=== PATIENT | male | born 1970 | race Caucasian/White ===

== ENCOUNTER 2019-05-15 13:31 | Inpatient (IN) ==
[2019-05-15] MEDS ORDERED: 0.9 % SODIUM CHLORIDE 1,000 ML IV ONE ×2 (13:47→15:51)
[2019-05-15 14:49] LABS: Basophils # (Auto) 0.06 K/mcL (0.00-0.30); Basophils % (Auto) 0.4 % (0.0-2.0); Eosinophils # (Auto) 0.04 K/mcL (0.00-0.70); Eosinophils % (Auto) 0.2 % (0.0-7.0); Granulocytes % (Auto) 90.1 % (38.0-78.0); Hematocrit 37.8 % (40.1-51.0); Hemoglobin 13.2 g/dL (13.7-17.5); Lymphocytes # (Auto) 0.98 K/mcL (1.50-4.80); Lymphocytes % (Auto) 5.7 % (15.5-49.0); Mean Cell Volume 92.4 fL (80.0-100.0); Mean Corpuscular HGB Conc 34.9 g/dL (31.0-36.0); Mean Platelet Volume 9.6 fL (7.4-10.4); Monocytes # (Auto) 0.62 K/mcL (0.10-0.90); Monocytes % (Auto) 3.6 % (1.0-12.0); Platelet Count 229 K/mcL (140-440); RBC 4.09 M/mcL (4.63-6.08); Red Cell Distribution Width 14.6 % (11.5-14.5); WBC 17.1 K/mcL (4.50-11.00)
[2019-05-15 15:06] LABS: Alcohol, Blood < 10.0 mg/dL (<10); Alcohol,Blood < 0.010 gm/dl (<0.010)
[2019-05-15 15:22] LABS: ALT/SGPT 48 U/l (0-40); AST/SGOT 80 U/l (0-37); Albumin 4.8 gm/dL (3.2-5.2); Albumin/Globulin Ratio 1.4 (1.0-2.3); Alkaline Phosphatase 73 U/L (39-117); Bilirubin,Total 0.8 mg/dL (0.0-1.0); Blood Urea Nitrogen 45 mg/dl (6-20); Calcium 10.2 mg/dl (8.6-10.4); Carbon Dioxide 14 mmol/L (22-30); Globulin 3.5 gm/dL (2.2-3.7); Glomerular Filtration Rate 19; Glucose 64 mg/dL (70-105)
[2019-05-15 15:39] LABS: Chloride 90 mmol/L (96-108)
[2019-05-15] MEDS ORDERED: PIPERACILLIN SODIUM/TAZOBACTAM 3.375 GM in DEXTROSE 5% IN WATER 50 ML IV ONE (16:01)
--- NOTE | 2019-05-15 16:08 | Emergency Department Note ---
Psych HPI - General Chief Complaint: Psychiatric Symptoms Stated Complaint: Psych Symptoms Time Seen by Provider: 05/15/19 13:47 Source: patient, EMS Mode of arrival: EMS - History of Present Illness HPI Narrative: 48-year-old male was brought in by police after multiple people were concerned for his wellbeing. He was found out in the yard waving his arms around and not making a lot of sense. Has a history of schizophrenia and has had issues like this in the past. Please brought the patient in and notified [facility] for mental health evaluation. Patient is responsive to me but definitely confused at times. He is holding his arms in the air and he states that is because the police told him to hold his arms in the air so he does not want to put them down. He is able to tell me the date and a little bit about what is going on. He has had a cough for the last few days. Otherwise he feels fine. His clothes are wet and he has a strong odorous urine presents on arrival. He adamantly denies any other recent illness. States he has been taking his medications as directed. He also tells me that he has been eating and drinking fine but his mouth is dry from all his medications which is usual for him. States he did drink some fluid this morning but has not eaten anything. He does state that he did eat last night. No fever or chills. His dad lives next door and helps care for him but tries to let him care for himself. Dad states "I guess I will have to start taking care of him again" QB H is also here and in the room evaluating the patient. Patient denies sore throat, ear pain, or any cold symptoms. No nausea or vomiting or diarrhea. No dysuria or frequency. No abdominal pain or chest pain. Only complaint is a cough the last few days. - Related Data Home Medications Medication Instructions Recorded Confirmed Lisinopril/Hctz 20/12.5MG 1 tablet PO DAILY 12/23/17 12/23/17 [Zestoretic 20/12.5MG] ALPRAZolam [Xanax] 1 mg PO BIDP PRN 05/15/19 05/15/19 Allopurinol [Zylopriim] 300 mg PO DAILY 05/15/19 05/15/19 Cyclobenzaprine [Flexeril] 10 mg PO HSP PRN 05/15/19 05/15/19 Hydrochlorothiazide [Oretic] 25 mg PO DAILY 05/15/19 05/15/19 Losartan Potassium [Cozaar] 100 mg PO DAILY 05/15/19 05/15/19 Metoprolol Tartrate [Lopressor] 25 mg PO BID 05/15/19 05/15/19 OLANZapine [Olanzapine] 2.5 mg PO DAILY 05/15/19 05/15/19 Zolpidem [Ambien] 10 mg PO HSP PRN 05/15/19 05/15/19 amLODIPine [Norvasc] 10 mg PO DAILY 05/15/19 05/15/19 buPROPion [Wellbutrin] 100 mg PO DAILY 05/15/19 05/15/19 clonazePAM [KlonoPIN] 1 mg PO BID 05/15/19 05/15/19 Allergies Allergy/AdvReac Type Severity Reaction Status Date / Time No Known Drug Allergies Allergy Verified 12/23/17 12:04 Review of Systems All systems ED: reviewed and negative except as stated. Past Medical History - Past Medical History Medical history: Reports: hypertension Psychiatric history: Reports: anxiety, schizophrenia (reported by family) - Social History smoking status: Former smoker Alcohol use: Reports: Unknown Drug use: Reports: unknown Physical Exam Limitations: no limitations General appearance: alert (He is alert to person, place, time, and can recall most of the situation and why he was brought in however he does have some strange behavior and does have some confusion at times), other (Smells of urine) Head: atraumatic, normocephalic, normal inspection Eye: Present: normal appearance. Absent: conjunctival injection ENT: Present: mucous membranes moist Chest: Present: symmetric chest wall rise Respiratory: Present: normal lung sounds bilaterally. Absent: respiratory distress, rales/crackles, wheezes, accessory muscle use Cardiovascular: Present: regular rate, normal heart sounds Abdominal: Present: soft, normal bowel sounds. Absent: distention, tenderness, guarding, mass Extremities: Present: normal inspection Neurological: Present: alert, oriented X3 Psychiatric: Present: depressed (denies). Absent: homicidal ideation (denies), suicidal ideation (denies) Skin: Present: warm, dry, intact, normal color Course Course Narrative: For a long time patient refused to give us urine or states he cannot go. Eventually we did have to cath the patient because he was still unable to go and we cannot wait any longer as we needed to proceed with treatment. He has been cooperative. Does have a creatinine of 3.6 and from prior labs that we have this is greatly abnormal for him as his last creatinine was 1.6. He denies any history of kidney problems.Patient again asked about taking his medications and states he has been taking them appropriately. @ [id number] I did speak with Dr. Crabtree, hospitalist who agrees to accept this patient. Vital Signs Temperature 97.2 F 05/15/19 13:33 Pulse Rate 104 H 05/15/19 13:33 Respiratory Rate 26 H 05/15/19 13:33 Blood Pressure 101/74 05/15/19 13:33 Pulse Oximetry (%) 100 05/15/19 13:33 Temperature 97.2 F 05/15/19 13:33 Pulse Rate 91 H 05/15/19 17:01 Respiratory Rate 27 H 05/15/19 17:01 Blood Pressure 118/66 05/15/19 17:01 Pulse Oximetry (%) 100 05/15/19 17:01 Psych - Lab Data Lab results reviewed: Yes I reviewed the patient's lab results. Result diagrams: 05/15/19 14:05 05/15/19 14:05 Lab Results 05/15/19 05/15/19 05/15/19 Range/Units 14:05 14:05 14:05 WBC 17.1 H (4.50-11.00) K/mcL RBC 4.09 L (4.63-6.08) M/mcL Hgb 13.2 L (13.7-17.5) g/dL Hct 37.8 L (40.1-51.0) % MCV 92.4 (80.0-100.0) fL MCH 32.3 (26.0-34.0) pg MCHC 34.9 (31.0-36.0) g/dL RDW 14.6 H (11.5-14.5) % Plt Count 229 (140-440) K/mcL MPV 9.6 (7.4-10.4) fL Gran % 90.1 H (38.0-78.0) % Lymph % (Auto) 5.7 L (15.5-49.0) % [place] % (Auto) 3.6 (1.0-12.0) % Eos % (Auto) 0.2 (0.0-7.0) % Baso % (Auto) 0.4 (0.0-2.0) % Gran # 15.40 H (1.80-8.00) K/mcL Lymph # (Auto) 0.98 L (1.50-4.80) K/mcL [place] # (Auto) 0.62 (0.10-0.90) K/mcL Eos # (Auto) 0.04 (0.00-0.70) K/mcL Baso # (Auto) 0.06 (0.00-0.30) K/mcL VBG Lactic Acid (0.5-2.0) mmol/L Sodium 135 (133-145) mmol/L Potassium 4.3 (3.3-5.1) mmol/L Chloride 90 L (96-108) mmol/L Carbon Dioxide 14 L (22-30) mmol/L Anion Gap 31.0 H (8-16) BUN 45 H (6-20) mg/dl Creatinine 3.6 H (0.7-1.2) mg/dl GFR Calculation 19 Glucose 64 L (70-105) mg/dL Calcium 10.2 (8.6-10.4) mg/dl Total Bilirubin 0.8 (0.0-1.0) mg/dL AST 80 H (0-37) U/l ALT 48 H (0-40) U/l Alkaline Phosphatase 73 (39-117) U/L Total Protein 8.3 (5.9-8.4) gm/dL Albumin 4.8 (3.2-5.2) gm/dL Globulin 3.5 (2.2-3.7) gm/dL Albumin/Globulin Ratio 1.4 (1.0-2.3) Lipase (7-60) U/L TSH 1.30 (0.27-5.01) uIU/ml Urine Color Urine Appearance Urine pH (5.0-9.0) Ur Specific [place] (1.000-1.035) Urine Protein (NEG) mg/dL Urine Glucose (UA) (NEG) mg/dL Urine Ketones (NEG) mg/dL Urine Occult Blood (<0.03) mg/dL Urine Nitrate (NEG) Urine Bilirubin (NEG) mg/dL Urine Urobilinogen (NEG) mg/dL Ur Leukocyte Esterase (NEG) /uL Urine RBC (0-1) /hpf Urine WBC (0-4) /hpf Ur Squamous Epith Cells (0-4) /hpf Urine Bacteria (0) /hpf Hyaline Casts (0-2) /lpf Urine Mucus (0) /hpf Ur Culture Indicated? Salicylates mg/dL Urine Opiates Screen (NONDETECTED) Ur Oxycodone Screen (NONDETECTED) Urine Methadone Screen (NONDETECTED) Acetaminophen < 5.0 ug/mL Ur Barbiturates Screen (NONDETECTED) Ur Phencyclidine Scrn (NONDETECTED) Ur Amphetamines Screen (NONDETECTED) U Benzodiazepines Scrn (NONDETECTED) Urine Cocaine Screen (NONDETECTED) U Marijuana (THC) Screen (NONDETECTED) Ethyl Alcohol Cancelled 05/15/19 05/15/19 05/15/19 Range/Units 14:05 14:06 14:06 WBC (4.50-11.00) K/mcL RBC (4.63-6.08) M/mcL Hgb (13.7-17.5) g/dL Hct (40.1-51.0) % MCV (80.0-100.0) fL MCH (26.0-34.0) pg MCHC (31.0-36.0) g/dL RDW (11.5-14.5) % Plt Count (140-440) K/mcL MPV (7.4-10.4) fL Gran % (38.0-78.0) % Lymph % (Auto) (15.5-49.0) % [place] % (Auto) (1.0-12.0) % Eos % (Auto) (0.0-7.0) % Baso % (Auto) (0.0-2.0) % Gran # (1.80-8.00) K/mcL Lymph # (Auto) (1.50-4.80) K/mcL [place] # (Auto) (0.10-0.90) K/mcL Eos # (Auto) (0.00-0.70) K/mcL Baso # (Auto) (0.00-0.30) K/mcL VBG Lactic Acid (0.5-2.0) mmol/L Sodium (133-145) mmol/L Potassium (3.3-5.1) mmol/L Chloride (96-108) mmol/L Carbon Dioxide (22-30) mmol/L Anion Gap (8-16) BUN (6-20) mg/dl Creatinine (0.7-1.2) mg/dl GFR Calculation Glucose (70-105) mg/dL Calcium (8.6-10.4) mg/dl Total Bilirubin (0.0-1.0) mg/dL AST (0-37) U/l ALT (0-40) U/l Alkaline Phosphatase (39-117) U/L Total Protein (5.9-8.4) gm/dL Albumin (3.2-5.2) gm/dL Globulin (2.2-3.7) gm/dL Albumin/Globulin Ratio (1.0-2.3) Lipase 41 (7-60) U/L TSH (0.27-5.01) uIU/ml Urine Color Urine Appearance Urine pH (5.0-9.0) Ur Specific [place] (1.000-1.035) Urine Protein (NEG) mg/dL Urine Glucose (UA) (NEG) mg/dL Urine Ketones (NEG) mg/dL Urine Occult Blood (<0.03) mg/dL Urine Nitrate (NEG) Urine Bilirubin (NEG) mg/dL Urine Urobilinogen (NEG) mg/dL Ur Leukocyte Esterase (NEG) /uL Urine RBC (0-1) /hpf Urine WBC (0-4) /hpf Ur Squamous Epith Cells (0-4) /hpf Urine Bacteria (0) /hpf Hyaline Casts (0-2) /lpf Urine Mucus (0) /hpf Ur Culture Indicated? Salicylates < 0.3 mg/dL Urine Opiates Screen (NONDETECTED) Ur Oxycodone Screen (NONDETECTED) Urine Methadone Screen (NONDETECTED) Acetaminophen ug/mL Ur Barbiturates Screen (NONDETECTED) Ur Phencyclidine Scrn (NONDETECTED) Ur Amphetamines Screen (NONDETECTED) U Benzodiazepines Scrn (NONDETECTED) Urine Cocaine Screen (NONDETECTED) U Marijuana (THC) Screen (NONDETECTED) Ethyl Alcohol < 0.010 05/15/19 05/15/19 05/15/19 Range/Units 16:13 16:13 16:21 WBC (4.50-11.00) K/mcL RBC (4.63-6.08) M/mcL Hgb (13.7-17.5) g/dL Hct (40.1-51.0) % MCV (80.0-100.0) fL MCH (26.0-34.0) pg MCHC (31.0-36.0) g/dL RDW (11.5-14.5) % Plt Count (140-440) K/mcL MPV (7.4-10.4) fL Gran % (38.0-78.0) % Lymph % (Auto) (15.5-49.0) % [place] % (Auto) (1.0-12.0) % Eos % (Auto) (0.0-7.0) % Baso % (Auto) (0.0-2.0) % Gran # (1.80-8.00) K/mcL Lymph # (Auto) (1.50-4.80) K/mcL [place] # (Auto) (0.10-0.90) K/mcL Eos # (Auto) (0.00-0.70) K/mcL Baso # (Auto) (0.00-0.30) K/mcL VBG Lactic Acid 1.3 (0.5-2.0) mmol/L Sodium (133-145) mmol/L Potassium (3.3-5.1) mmol/L Chloride (96-108) mmol/L Carbon Dioxide (22-30) mmol/L Anion Gap (8-16) BUN (6-20) mg/dl Creatinine (0.7-1.2) mg/dl GFR Calculation Glucose (70-105) mg/dL Calcium (8.6-10.4) mg/dl Total Bilirubin (0.0-1.0) mg/dL AST (0-37) U/l ALT (0-40) U/l Alkaline Phosphatase (39-117) U/L Total Protein (5.9-8.4) gm/dL Albumin (3.2-5.2) gm/dL Globulin (2.2-3.7) gm/dL Albumin/Globulin Ratio (1.0-2.3) Lipase (7-60) U/L TSH (0.27-5.01) uIU/ml Urine Color Yellow Urine Appearance Cloudy Urine pH 5.0 (5.0-9.0) Ur Specific [place] 1.018 (1.000-1.035) Urine Protein 100 A (NEG) mg/dL Urine Glucose (UA) Negative (NEG) mg/dL Urine Ketones 5/tr A (NEG) mg/dL Urine Occult Blood 0.03 A (<0.03) mg/dL Urine Nitrate Neg (NEG) Urine Bilirubin Neg (NEG) mg/dL Urine Urobilinogen Neg (NEG) mg/dL Ur Leukocyte Esterase Neg (NEG) /uL Urine RBC 4 H (0-1) /hpf Urine WBC 6 H (0-4) /hpf Ur Squamous Epith Cells 1 (0-4) /hpf Urine Bacteria 0 (0) /hpf Hyaline Casts 100 H (0-2) /lpf Urine Mucus Mod (0) /hpf Ur Culture Indicated? No Salicylates mg/dL Urine Opiates Screen None detected (NONDETECTED) Ur Oxycodone Screen None detected (NONDETECTED) Urine Methadone Screen None detected (NONDETECTED) Acetaminophen ug/mL Ur Barbiturates Screen None detected (NONDETECTED) Ur Phencyclidine Scrn None detected (NONDETECTED) Ur Amphetamines Screen Suspect positive A (NONDETECTED) U Benzodiazepines Scrn Suspect positive A (NONDETECTED) Urine Cocaine Screen None detected (NONDETECTED) U Marijuana (THC) Screen Suspect positive A (NONDETECTED) Ethyl Alcohol Cancelled - Radiology Data Radiology results reviewed: Yes I reviewed the patient's radiology results. Disposition Pt seen by SEO STRATEGIST/PA only: Yes Clinical Impression: Dehydration, Confusion, Acute renal failure, Polysubstance abuse Disposition: Xfer As Inpt ([facility]) Condition: Fair Referrals: No,PCP [Primary Care Provider] - Time of Disposition: 17:25
[2019-05-15 17:14] LABS: Appearance,Urine CLOUDY; Bacteria,Urine 0 /hpf (0); Bilirubin,Urine NEG (NEG); Color,Urine YELLOW; Culture Indicated,Urine NO; Glucose,Urine (UA) NEGATIVE (NEG); Ketones,Urine 5/TR mg/dL (NEG); Leukocyte Esterase,Urine NEG /uL (NEG); Mucus,Urine MOD /hpf (0); Nitrate,Urine NEG (NEG); Protein,Urine 100 mg/dL (NEG); Specific Gravity,Urine 1.018 (1.000-1.035); Urine Blood 0.03 mg/dL (<0.03); Urine Hyaline Cast 100 /lpf (0-2); Urine RBC 4 /hpf (0-1); Urine Squamous Epithelial Cell 1 /hpf (0-4); Urine WBC 6 /hpf (0-4); Urobilinogen,Urine NEG (NEG)
[2019-05-15 17:18] LABS: Barbiturate Screen,Urine NONE DETECTED (NONDETECTED); Cocaine Screen,Urine NONE DETECTED (NONDETECTED); Opiate Screen,Urine NONE DETECTED (NONDETECTED); Oxycodone, Urine Screen NONE DETECTED (NONDETECTED); Phencyclidine Screen,Urine NONE DETECTED (NONDETECTED)
--- NOTE | 2019-05-15 18:07 | Internal Med History&Physical ---
Medical - H&P: HPI Patient information: Note initiated : 05/15/19 at 6:06 pm Service Date, if different from initiated Date: [] Patient: Zak Aburto a 48 y/o M admitted on for Psych Symptoms. Chief Complaint: found to have ARF History of present illness: Mr. Aburto is a 48 year old M with a history of schizophrenia, hypertension, anxiety, history of alcohol abuse who presents the ED brought in by law enforcem ent after he was found out in his yard. Patient has no recollection of those events. History is obtained speaking with the ED provider as well as the patient. Apparently on the day of admission, the patient was out in the porch and then front yard waving his arms around, yelling and not making sense. Multiple people were concerned and law enforcement was called. He is brought to the ED for evaluation. He smelled of urine and his clothing was wet with urine. He was pleasant, but could not provide history initially. He was evaluated by mental health and felt not to be a threat to himself or others. Further evaluation in the ED showed a creatinine of 3.6, which is apparently new as well as a white count of 17,000. No particular source of infection was found, he is now being admitted for further evaluation of renal failure. Patient history is a bit meandering and occasionally tangential. He tells me he woke up this morning ready to do some work. About lunch she is feeling hungry, did not want fast food and went to the store. He last remembers putting away some items he gotten. Does not remember much after that. Recalls that he is told that he was initially on the porch and then in the front yard. He denies any active hallucinations. He thinks he has had normal urine output, urinating about 3 times a day, though is noted that is become "foamy" over the last 1 to 2 days. He has noted no blood in his urine. No dysuria, no hesitancy. He is taking his current medi cations which include hydrochlorothiazide and losartan. Initially he said he had recently started a supplement, though subsequently states that was Centrum silver vitamins, because he had turned 48. He denies any current fever or feeling feverish. He states he felt he may have had the flu about 2 weeks ago, there other family members were ill. He is complaining of a raspy throat and itchy eyes, perhaps starting today, though he volunteers it could be related to singing karaoke earlier in the week. He has had a dry cough that started yesterday. He denies any sputum production, no dyspnea, though sometimes he cannot take a full breath because tickle in his throat triggers a cough. He has had no abdominal pain, no diarrhea, no nausea or vomiting. He denies any chest pain/tightness/squeezing. All systems: reviewed and no additional remarkable complaints except as stated Medical - H&P: PMH Medical history: Schizophrenia Anxiety Hypertension History of alcohol abuse Gout History of nasal fracture Surgical history: Denies any surgeries Pertinent family history: Mother with depression, has been suicidal in the last year Social history: Lives alone, though his father lives next door and helps keep an eye on him. Manages his own medications. He has drank in the past, states he has "fried my liver" and rarely drinks, last consuming on [email or web address]. He is intermittently stop smoking, most recently about 2 months ago. He does use marijuana. He is used methamphetamine in the past, denies any current methamphetamine use. Medical - H&P: Meds Home Medications Medication Instructions Recorded Confirmed Type ALPRAZolam [Xanax] 1 mg PO BIDP PRN 05/15/19 05/15/19 History Allopurinol [Zylopriim] 300 mg PO DAILY 05/15/19 05/15/19 History Cyclobenzaprine [Flexeril] 10 mg PO HSP PRN 05/15/19 05/15/19 History Hydrochlorothiazide [Oretic] 25 mg PO DAILY 05/15/19 05/15/19 History Losartan Potassium [Cozaar] 100 mg PO DAILY 05/15/19 05/15/19 History Metoprolol Tartrate [Lopressor] 25 mg PO BID 05/15/19 05/15/19 History OLANZapine [Olanzapine] 2.5 mg PO DAILY 05/15/19 05/15/19 History Zolpidem [Ambien] 10 mg PO HSP PRN 05/15/19 05/15/19 History amLODIPine [Norvasc] 10 mg PO DAILY 05/15/19 05/15/19 History clonazePAM [KlonoPIN] 1 mg PO BID 05/15/19 05/15/19 History Allergies Allergy/AdvReac Type Severity Reaction Status Date / Time No Known Drug Allergies Allergy Verified 12/23/17 12:04 Medical - H&P: Exam - Constitutional Vitals: Temp Pulse Resp BP Pulse Ox 97.2 F 91 H 27 H 118/66 100 05/15/19 13:33 05/15/19 17:01 05/15/19 17:01 05/15/19 17:01 05/15/19 17:01 Exam: GENERAL: Alert, in no acute distress. Cooperative, appears stated age. HEENT: Atraumatic. PERRL at 6 mm, conjunctiva clear, no scleral icterus. Hearing grossly intact. Oropharynx with dry mucous membranes, tongue midline, palate rises symmetrically. NECK: Supple without meningismus, no thyromegaly RESPIRATORY: Breath sounds clear bilaterally without wheezes or rhonchi. Respiratory effort is unlabored. CARDIOVASCULAR: Regular rate and rhythm, no murmur gallop or rub. No peripheral edema. Carotid pulses 2+ without bruit. Pedal pulses 2+. GI: Abdomen soft, protuberant nontender, no guarding or rebound. No bulging flanks, no fluid wave appreciated. Bowel sounds are present. No hepatosplenomegaly. : Coello catheter in place MUSCULOSKELETAL: No joint erythema or swelling, normal range of motion in all extremities. Extremities warm and perfused. No CVA tenderness. SKIN: Erythema overlying the knees bilaterally, the patient states that is new. Skin turgor is decreased. NEUROLOGIC: Cranial nerves II through XII grossly intact. Muscle mass normal. Strength 5/5 in the upper and lower extremities. Sensation intact to light touch bilaterally. Deep tendon reflexes 2+ for biceps and patella. Normal muscle tone PSYCHIATRIC: Alert, oriented x3. Thoughts are a bit scattered in stories meanders at times with some tangentiality. Decreased insight into his medical condition. Medical - H&P: Reslt - Labs CBC & Chem 7: 05/15/19 14:05 05/15/19 14:05 Labs: Short CBC 05/15/19 05/15/19 05/15/19 Range/Units 14:05 14:05 14:05 WBC 17.1 H (4.50-11.00) K/mcL RBC 4.09 L (4.63-6.08) M/mcL Hgb 13.2 L (13.7-17.5) g/dL Hct 37.8 L (40.1-51.0) % MCV 92.4 (80.0-100.0) fL MCH 32.3 (26.0-34.0) pg MCHC 34.9 (31.0-36.0) g/dL RDW 14.6 H (11.5-14.5) % Plt Count 229 (140-440) K/mcL MPV 9.6 (7.4-10.4) fL Gran % 90.1 H (38.0-78.0) % Lymph % (Auto) 5.7 L (15.5-49.0) % [place] % (Auto) 3.6 (1.0-12.0) % Eos % (Auto) 0.2 (0.0-7.0) % Baso % (Auto) 0.4 (0.0-2.0) % Gran # 15.40 H (1.80-8.00) K/mcL Lymph # (Auto) 0.98 L (1.50-4.80) K/mcL [place] # (Auto) 0.62 (0.10-0.90) K/mcL Eos # (Auto) 0.04 (0.00-0.70) K/mcL Baso # (Auto) 0.06 (0.00-0.30) K/mcL VBG Lactic Acid (0.5-2.0) mmol/L Sodium 135 (133-145) mmol/L Potassium 4.3 (3.3-5.1) mmol/L Chloride 90 L (96-108) mmol/L Carbon Dioxide 14 L (22-30) mmol/L Anion Gap 31.0 H (8-16) BUN 45 H (6-20) mg/dl Creatinine 3.6 H (0.7-1.2) mg/dl GFR Calculation 19 Glucose 64 L (70-105) mg/dL Calcium 10.2 (8.6-10.4) mg/dl Total Bilirubin 0.8 (0.0-1.0) mg/dL AST 80 H (0-37) U/l ALT 48 H (0-40) U/l Alkaline Phosphatase 73 (39-117) U/L Total Protein 8.3 (5.9-8.4) gm/dL Albumin 4.8 (3.2-5.2) gm/dL Globulin 3.5 (2.2-3.7) gm/dL Albumin/Globulin Ratio 1.4 (1.0-2.3) Lipase (7-60) U/L TSH 1.30 (0.27-5.01) uIU/ml Urine Color Urine Appearance Urine pH (5.0-9.0) Ur Specific [place] (1.000-1.035) Urine Protein (NEG) mg/dL Urine Glucose (UA) (NEG) mg/dL Urine Ketones (NEG) mg/dL Urine Occult Blood (<0.03) mg/dL Urine Nitrate (NEG) Urine Bilirubin (NEG) mg/dL Urine Urobilinogen (NEG) mg/dL Ur Leukocyte Esterase (NEG) /uL Urine RBC (0-1) /hpf Urine WBC (0-4) /hpf Ur Squamous Epith Cells (0-4) /hpf Urine Bacteria (0) /hpf Hyaline Casts (0-2) /lpf Urine Mucus (0) /hpf Ur Culture Indicated? Salicylates mg/dL Urine Opiates Screen (NONDETECTED) Ur Oxycodone Screen (NONDETECTED) Urine Methadone Screen (NONDETECTED) Acetaminophen < 5.0 ug/mL Ur Barbiturates Screen (NONDETECTED) Ur Phencyclidine Scrn (NONDETECTED) Ur Amphetamines Screen (NONDETECTED) U Benzodiazepines Scrn (NONDETECTED) Urine Cocaine Screen (NONDETECTED) U Marijuana (THC) Screen (NONDETECTED) Ethyl Alcohol Cancelled 05/15/19 05/15/19 05/15/19 Range/Units 14:05 14:06 14:06 WBC (4.50-11.00) K/mcL RBC (4.63-6.08) M/mcL Hgb (13.7-17.5) g/dL Hct (40.1-51.0) % MCV (80.0-100.0) fL MCH (26.0-34.0) pg MCHC (31.0-36.0) g/dL RDW (11.5-14.5) % Plt Count (140-440) K/mcL MPV (7.4-10.4) fL Gran % (38.0-78.0) % Lymph % (Auto) (15.5-49.0) % [place] % (Auto) (1.0-12.0) % Eos % (Auto) (0.0-7.0) % Baso % (Auto) (0.0-2.0) % Gran # (1.80-8.00) K/mcL Lymph # (Auto) (1.50-4.80) K/mcL [place] # (Auto) (0.10-0.90) K/mcL Eos # (Auto) (0.00-0.70) K/mcL Baso # (Auto) (0.00-0.30) K/mcL VBG Lactic Acid (0.5-2.0) mmol/L Sodium (133-145) mmol/L Potassium (3.3-5.1) mmol/L Chloride (96-108) mmol/L Carbon Dioxide (22-30) mmol/L Anion Gap (8-16) BUN (6-20) mg/dl Creatinine (0.7-1.2) mg/dl GFR Calculation Glucose (70-105) mg/dL Calcium (8.6-10.4) mg/dl Total Bilirubin (0.0-1.0) mg/dL AST (0-37) U/l ALT (0-40) U/l Alkaline Phosphatase (39-117) U/L Total Protein (5.9-8.4) gm/dL Albumin (3.2-5.2) gm/dL Globulin (2.2-3.7) gm/dL Albumin/Globulin Ratio (1.0-2.3) Lipase 41 (7-60) U/L TSH (0.27-5.01) uIU/ml Urine Color Urine Appearance Urine pH (5.0-9.0) Ur Specific [place] (1.000-1.035) Urine Protein (NEG) mg/dL Urine Glucose (UA) (NEG) mg/dL Urine Ketones (NEG) mg/dL Urine Occult Blood (<0.03) mg/dL Urine Nitrate (NEG) Urine Bilirubin (NEG) mg/dL Urine Urobilinogen (NEG) mg/dL Ur Leukocyte Esterase (NEG) /uL Urine RBC (0-1) /hpf Urine WBC (0-4) /hpf Ur Squamous Epith Cells (0-4) /hpf Urine Bacteria (0) /hpf Hyaline Casts (0-2) /lpf Urine Mucus (0) /hpf Ur Culture Indicated? Salicylates < 0.3 mg/dL Urine Opiates Screen (NONDETECTED) Ur Oxycodone Screen (NONDETECTED) Urine Methadone Screen (NONDETECTED) Acetaminophen ug/mL Ur Barbiturates Screen (NONDETECTED) Ur Phencyclidine Scrn (NONDETECTED) Ur Amphetamines Screen (NONDETECTED) U Benzodiazepines Scrn (NONDETECTED) Urine Cocaine Screen (NONDETECTED) U Marijuana (THC) Screen (NONDETECTED) Ethyl Alcohol < 0.010 05/15/19 05/15/19 05/15/19 Range/Units 16:13 16:13 16:21 WBC (4.50-11.00) K/mcL RBC (4.63-6.08) M/mcL Hgb (13.7-17.5) g/dL Hct (40.1-51.0) % MCV (80.0-100.0) fL MCH (26.0-34.0) pg MCHC (31.0-36.0) g/dL RDW (11.5-14.5) % Plt Count (140-440) K/mcL MPV (7.4-10.4) fL Gran % (38.0-78.0) % Lymph % (Auto) (15.5-49.0) % [place] % (Auto) (1.0-12.0) % Eos % (Auto) (0.0-7.0) % Baso % (Auto) (0.0-2.0) % Gran # (1.80-8.00) K/mcL Lymph # (Auto) (1.50-4.80) K/mcL [place] # (Auto) (0.10-0.90) K/mcL Eos # (Auto) (0.00-0.70) K/mcL Baso # (Auto) (0.00-0.30) K/mcL VBG Lactic Acid 1.3 (0.5-2.0) mmol/L Sodium (133-145) mmol/L Potassium (3.3-5.1) mmol/L Chloride (96-108) mmol/L Carbon Dioxide (22-30) mmol/L Anion Gap (8-16) BUN (6-20) mg/dl Creatinine (0.7-1.2) mg/dl GFR Calculation Glucose (70-105) mg/dL Calcium (8.6-10.4) mg/dl Total Bilirubin (0.0-1.0) mg/dL AST (0-37) U/l ALT (0-40) U/l Alkaline Phosphatase (39-117) U/L Total Protein (5.9-8.4) gm/dL Albumin (3.2-5.2) gm/dL Globulin (2.2-3.7) gm/dL Albumin/Globulin Ratio (1.0-2.3) Lipase (7-60) U/L TSH (0.27-5.01) uIU/ml Urine Color Yellow Urine Appearance Cloudy Urine pH 5.0 (5.0-9.0) Ur Specific [place] 1.018 (1.000-1.035) Urine Protein 100 A (NEG) mg/dL Urine Glucose (UA) Negative (NEG) mg/dL Urine Ketones 5/tr A (NEG) mg/dL Urine Occult Blood 0.03 A (<0.03) mg/dL Urine Nitrate Neg (NEG) Urine Bilirubin Neg (NEG) mg/dL Urine Urobilinogen Neg (NEG) mg/dL Ur Leukocyte Esterase Neg (NEG) /uL Urine RBC 4 H (0-1) /hpf Urine WBC 6 H (0-4) /hpf Ur Squamous Epith Cells 1 (0-4) /hpf Urine Bacteria 0 (0) /hpf Hyaline Casts 100 H (0-2) /lpf Urine Mucus Mod (0) /hpf Ur Culture Indicated? No Salicylates mg/dL Urine Opiates Screen None detected (NONDETECTED) Ur Oxycodone Screen None detected (NONDETECTED) Urine Methadone Screen None detected (NONDETECTED) Acetaminophen ug/mL Ur Barbiturates Screen None detected (NONDETECTED) Ur Phencyclidine Scrn None detected (NONDETECTED) Ur Amphetamines Screen Suspect positive A (NONDETECTED) U Benzodiazepines Scrn Suspect positive A (NONDETECTED) Urine Cocaine Screen None detected (NONDETECTED) U Marijuana (THC) Screen Suspect positive A (NONDETECTED) Ethyl Alcohol Cancelled BMP 05/15/19 14:05 Sodium 135 Potassium 4.3 Chloride 90 L Carbon Dioxide 14 L BUN 45 H Creatinine 3.6 H Glucose 64 L Calcium 10.2 Liver Function 05/15/19 Range/Units 14:05 Total Bilirubin 0.8 (0.0-1.0) mg/dL AST 80 H (0-37) U/l ALT 48 H (0-40) U/l Alkaline Phosphatase 73 (39-117) U/L Albumin 4.8 (3.2-5.2) gm/dL Urine 05/15/19 Range/Units 16:13 Urine Color Yellow Urine Appearance Cloudy Urine pH 5.0 (5.0-9.0) Ur Specific [place] 1.018 (1.000-1.035) Urine Protein 100 A (NEG) mg/dL Urine Glucose (UA) Negative (NEG) mg/dL - Imaging and Cardiology Chest x-ray Status: image reviewed by me Additional comments: Clear, no infiltrate. Medical - H&P: A/P - Narrative A/P Narrative: 48-year-old male with schizophrenia, found in his own yard with abnormal behaviors, found to have acute renal failure and leukocytosis in the ED. Acute renal failure. Patient's creatinine is 3.6. Minimal prior data here, but was 1.2 in 12/2017. Patient states he does have labs drawn by primary care, recently had blood work done and there is no discussion of renal insufficiency. Etiology is possible prerenal, the patient appears quite volume depleted. Urine has significant amounts of hyaline casts present suggesting volume depletion. He was mildly hypotensive and tachycardic at presentation, again consistent with volume issues. Etiology of volume depletion could be related to psychosis, possible methamphetamine use (denies but drug screen is positive) with contribution by diuretic for hypertension. ATN is also a possibility secondary to dehydration low blood pressure. No recent contrast exposures. Inpatient admission Send urine to calculate FeNa Check renal ultrasound Volume resuscitation Check urine eosinophils Check CPK to rule out rhabdomyolysis Coello catheter for close intake and output monitoring (placed in the ED) Leukocytosis. Unclear etiology. May be related to stress. No evidence of infection on physical exam, radiograph or urine analysis. He did receive anti biotics in the ED and has been cultured. Monitor expectantly Follow-up cultures Begin antibiotics if evidence of infection Metabolic acidosis with increased anion gap. Lactate is normal 1.3. Suspect this may be acidosis related to renal failure. Monitor with hydration and correction of renal failure Schizophrenia. Appears with some disordered thoughts, but no active hallucinations, has been evaluated by Q and is not felt to be of danger. Continue olanzapine. Anxiety. The patient is on clonazepam at baseline Continue CODE STATUS: Full code
[2019-05-15 18:09] LABS: Amphetamine Screen,Urine SUSPECT POSITIVE (NONDETECTED); Benzodiazepines Screen,Urine SUSPECT POSITIVE (NONDETECTED); Cannabinoid Screen,Urine SUSPECT POSITIVE (NONDETECTED)
--- NOTE | 2019-05-15 18:21 | XRay Report ---
CLINICAL INFORMATION: Cough and elevated white blood cell count COMPARISON: None. TECHNIQUE: PA and Lateral views FINDINGS: The heart size, mediastinum and pulmonary vessels are unremarkable. A few small calcified granulomas in the perihilar regions appreciated. No infiltrates. There are no effusions. The bones and soft tissues are within normal limits. IMPRESSION: No acute disease. Interpreted and Authenticated by: Amanuel Mcconnell 05/15/19
[2019-05-15] MEDS ORDERED: ONDANSETRON 4 MG/2 ML VIAL IV PRN (19:05)
[2019-05-15] MEDS ORDERED: LACTULOSE 20 GM/30 ML ORAL.SOL PO PRN (19:05)
[2019-05-15] MEDS ORDERED: SENNOSIDES 1 TABLET PO PRN (19:05)
[2019-05-15] MEDS ORDERED: ACETAMINOPHEN 325 MG TABLET PO PRN (19:05)
[2019-05-15] MEDS ORDERED: POLYVINYL ALCOHOL OPHTH DROPS 15ML BOTTLE OU PRN (19:05)
[2019-05-15] MEDS: 0.9 % SODIUM CHLORIDE 1,000 ML IV SCH (19:41)
[2019-05-15] MEDS ORDERED: ZOLPIDEM 5 MG TABLET PO PRN (20:13)
[2019-05-15] MEDS ORDERED: ALPRAZolam 0.5 MG TABLET PO PRN (20:13)
[2019-05-15 20:30] LABS: Sodium, Urine Random 46 mmol/L
[2019-05-15] MEDS: METOPROLOL TARTRATE 25 MG TABLET PO SCH (21:50)
[2019-05-15] MEDS: OXYBUTYNIN CHLORIDE 5 MG TABLET PO SCH (21:50)
[2019-05-15] MEDS: clonazePAM 1 MG TABLET PO SCH (21:50)
[2019-05-15] MEDS: HEPARIN 5,000 UNIT/ML VIAL SQ SCH (21:50)
[2019-05-15] MEDS: TAMSULOSIN 0.4 MG CAPSULE PO SCH (21:50)
[2019-05-15] MEDS: DOCUSATE SODIUM 100 MG CAPSULE PO SCH (21:51)
[2019-05-15] MEDS: 0.9 % SODIUM CHLORIDE 10 ML SYRINGE IV SCH (21:51)
[2019-05-16] MEDS: 0.9 % SODIUM CHLORIDE 1,000 ML IV SCH ×3 (01:45→17:13)
[2019-05-16] MEDS ORDERED: LORazepam 2 MG/ML VIAL IV PRN (01:58)
[2019-05-16] MEDS ORDERED: QUEtiapine 100 MG TABLET PO ONE (01:58)
[2019-05-16] MEDS ORDERED: LORazepam 2 MG/ML VIAL ONE (02:01)
[2019-05-16] MEDS: 0.9 % SODIUM CHLORIDE 10 ML SYRINGE IV SCH ×3 (05:33→23:28)
[2019-05-16 06:46] LABS: Basophils # (Auto) 0.03 K/mcL (0.00-0.30); Basophils % (Auto) 0.4 % (0.0-2.0); Eosinophils # (Auto) 0.05 K/mcL (0.00-0.70); Eosinophils % (Auto) 0.6 % (0.0-7.0); Granulocytes % (Auto) 68.9 % (38.0-78.0); Hematocrit 31.2 % (40.1-51.0); Hemoglobin 10.3 g/dL (13.7-17.5); Lymphocytes # (Auto) 1.75 K/mcL (1.50-4.80); Lymphocytes % (Auto) 21.3 % (15.5-49.0); Mean Cell Volume 96.9 fL (80.0-100.0); Mean Platelet Volume 9.9 fL (7.4-10.4); Monocytes # (Auto) 0.72 K/mcL (0.10-0.90); Monocytes % (Auto) 8.8 % (1.0-12.0); Platelet Count 164 K/mcL (140-440); RBC 3.22 M/mcL (4.63-6.08); Red Cell Distribution Width 15.5 % (11.5-14.5); WBC 8.2 K/mcL (4.50-11.00)
[2019-05-16 07:01] LABS: ALT/SGPT 44 U/l (0-40); AST/SGOT 104 U/l (0-37); Albumin 3.9 gm/dL (3.2-5.2); Albumin/Globulin Ratio 1.4 (1.0-2.3); Alkaline Phosphatase 58 U/L (39-117); Bilirubin,Direct 0.3 mg/dL (0.0-0.3); Bilirubin,Total 0.7 mg/dL (0.0-1.0); Blood Urea Nitrogen 43 mg/dl (6-20); Calcium 8.6 mg/dl (8.6-10.4); Carbon Dioxide 15 mmol/L (22-30); Chloride 97 mmol/L (96-108); Globulin 2.7 gm/dL (2.2-3.7); Glomerular Filtration Rate 22; Glucose 59 mg/dL (70-105); Lactate Dehydrogenase 289 U/L (94-250); Phosphorous 4.8 mg/dL (2.7-4.5); Triglycerides 165 mg/dl (<150); Uric Acid 14.6 mg/dL (2.5-8.0)
[2019-05-16] MEDS: DOCUSATE SODIUM 100 MG CAPSULE PO SCH ×2 (10:37→21:08)
[2019-05-16] MEDS: ALLOPURINOL 300 MG TABLET PO SCH (10:42)
[2019-05-16] MEDS: METOPROLOL TARTRATE 25 MG TABLET PO SCH ×2 (10:42→21:08)
[2019-05-16] MEDS: OLANZapine 2.5 MG TABLET PO SCH (10:42)
[2019-05-16] MEDS: amLODIPine 10 MG TABLET PO SCH (10:42)
[2019-05-16] MEDS: HEPARIN 5,000 UNIT/ML VIAL SQ SCH ×2 (10:42→21:07)
[2019-05-16] MEDS: clonazePAM 1 MG TABLET PO SCH ×2 (10:42→21:08)
[2019-05-16] MEDS: OXYBUTYNIN CHLORIDE 5 MG TABLET PO SCH ×3 (10:42→21:07)
--- NOTE | 2019-05-16 12:32 | Ultrasound Report ---
CLINICAL INFORMATION: Acute renal failure COMPARISON: None. FINDINGS: Both kidneys are normal and symmetric in size, position, configuration and echotexture: The right is 13 x 6 cm and the left is 12.5 x 6 cm. A 3 cm hypoechoic vascular lesion projects exophytically from the inferior pole of the right kidney. No hydronephrosis or stones. Arterial blood flow is grossly normal to both kidneys on color Doppler. Urinary bladder volume is 82 cc with no post void residual. There are no focal bladder lesions. IMPRESSION: No cause identified for renal failure. 3 cm hypoechoic solid lesion - inferior pole of the right kidney. Suggest: Noncontrast abdominal MRI to evaluate for renal cell carcinoma Interpreted and Authenticated by: Amanuel Mcconnell 05/16/19
--- NOTE | 2019-05-16 13:37 | Internal Med Progress Note ---
Medical - PN: Subj Patient information: Note initiated : 05/16/19 at 1:34 pm Service Date, if different from initiated Date: [] Patient: Zak Aburto a 48 y/o M admitted on 05/15/19 for Psych Symptoms. Chief Complaint: [] Interval history: 05/15 Mr. Aburto is a 48 year old M with a history of schizophrenia, hypertension, anxiety, history of alcohol abuse who presents the ED brought in by law enforcement after he was found out in his yard. Patient has no recollection of those events. History is obtained speaking with the ED provider as well as the patient. Apparently on the day of admission, the patient was out in the porch and then front yard waving his arms around, yelling and not making sense. Multiple people were concerned and law enforcement was called. He is brought to the ED for evaluation. He smelled of urine and his clothing was wet with urine. He was pleasant, but could not provide history initially. He was evaluated by mental health and felt not to be a threat to himself or others. Further evaluation in the ED showed a creatinine of 3.6, which is apparently new as well as a white count of 17,000. No particular source of infection was found, he is now being admitted for further evaluation of renal failure. Patient history is a bit meandering and occasionally tangential. He tells me he woke up this morning ready to do some work. About lunch she is feeling hungry, did not want fast food and went to the store. He last remembers putting away some items he gotten. Does not remember much after that. Recalls that he is told that he was initially on the porch and then in the front yard. He denies any active hallucinations. He thinks he has had normal urine output, urinating about 3 times a day, though is noted that is become "foamy" over the last 1 to 2 days. He has noted no blood in his urine. No dysuria, no hesitancy. He is taking his current medications which include hydrochlorothiazide and losartan. Initially he said he had recently started a supplement, though subsequently states that was Centrum silver vitamins, because he had turned 48. 05/16 Patient was very active. Overnight, moving around with psychomotor agitation. He is not combative. Reports my these. Received dose Seroquel without much effect, also received lorazepam. This morning he is more lucid, he did note that he and some friends ingested a unknown white powder at a [employer] a few days ago. Creatinine is improved to 3.1 this morning. Continues with good urine output. Fractional excretion of sodium 0.37% - Constitutional Vitals: Vital Signs Temp Pulse Resp BP Pulse Ox 98.1 F 95 H 22 94/59 100 05/16/19 04:02 05/16/19 01:03 05/16/19 12:11 05/16/19 11:21 05/16/19 11:21 Period Temp Pulse Resp BP Sys/Tarango Pulse Ox Last 24 Hr 97.2 F-98.2 F 79-102 14-35 48-141/33-123 91-100 Intake and Output 05/15/19 05/16/19 05/16/19 21:59 05:59 13:59 Intake Total 2049 187 1120 Output Total 500 300 104 Balance 1550 1570 1016 Weight 199 lb 4.8 oz Intake & Output: Intake & Output 05/15/19 05/16/19 05/16/19 21:59 05:59 13:59 Intake Total 2049 1869 1120 Output Total 500 300 104 Balance 1550 1570 1016 Weight 199 lb 4.8 oz Intake: IV 2049 910 1000 Sodium Chloride 0.9% 1,000 ml @ 2000 910 1000 150 mls/hr IV .Q6H40M [facility] Rx#: [id number] Zosyn 3.375 gm In Dextrose 5% 50 in Water 50 ml @ 100 mls/hr IV ONCE ONE Rx#:[id number] Oral 960 120 Output: Urine Catheter Amount 500 300 Void Amount 100 # of times incontinent of urine 4 Other: Meal Breakfast Percent of Meal Consumed 100% Feeding Ability Independent Urine Appearance Clear Clear Sediment Uretheral (Coello) Cloudy Urine Color Dark Yellow Bright Yellow Uretheral (Coello) Straw Stool Size Smear Stool Color Brown Yellow Stool Consistency Liquid # of times incontinent of 1 Bowels Exam: General: In bed, moving frequently, no complaints of pain. Chest: Clear. Cardiac vascular: Regular Abdomen: Soft, nontender. Neuro: Alert, initially disoriented, then realizes he's [place], is able to confirm his history of ingesting a substance at a [employer]. Moves all extremities equally. No hallucinations. Medical - PN: Obj Da - Labs CBC & Chem 7: 05/16/19 04:11 05/16/19 04:11 Labs: Abnormal Lab Results Fractional excretion of sodium equals 0.37% 05/16/19 05/16/19 05/15/19 04:11 04:11 16:13 WBC RBC 3.22 L Hgb 10.3 L Hct 31.2 L RDW 15.5 H Gran % Lymph % (Auto) Gran # Lymph # (Auto) Chloride Carbon Dioxide 15 L Anion Gap 24.0 H BUN 43 H Creatinine 3.1 H Glucose 59 L Uric Acid 14.6 H Phosphorus 4.8 H GGT 108 H AST 104 H ALT 44 H Lactate Dehydrogenase 289 H Total Creatine Kinase Triglycerides 165 H Urine Protein Urine Ketones Urine Occult Blood Urine RBC Urine WBC Hyaline Casts Ur Amphetamines Screen Suspect positive A U Benzodiazepines Scrn Suspect positive A U Marijuana (THC) Screen Suspect positive A 05/15/19 05/15/19 05/15/19 16:13 14:05 14:05 WBC RBC Hgb Hct RDW Gran % Lymph % (Auto) Gran # Lymph # (Auto) Chloride 90 L Carbon Dioxide 14 L Anion Gap 31.0 H BUN 45 H Creatinine 3.6 H Glucose 64 L Uric Acid Phosphorus GGT AST 80 H ALT 48 H Lactate Dehydrogenase Total Creatine Kinase 909 H Triglycerides Urine Protein 100 A Urine Ketones 5/tr A Urine Occult Blood 0.03 A Urine RBC 4 H Urine WBC 6 H Hyaline Casts 100 H Ur Amphetamines Screen U Benzodiazepines Scrn U Marijuana (THC) Screen 05/15/19 14:05 WBC 17.1 H RBC 4.09 L Hgb 13.2 L Hct 37.8 L RDW 14.6 H Gran % 90.1 H Lymph % (Auto) 5.7 L Gran # 15.40 H Lymph # (Auto) 0.98 L Chloride Carbon Dioxide Anion Gap BUN Creatinine Glucose Uric Acid Phosphorus GGT AST ALT Lactate Dehydrogenase Total Creatine Kinase Triglycerides Urine Protein Urine Ketones Urine Occult Blood Urine RBC Urine WBC Hyaline Casts Ur Amphetamines Screen U Benzodiazepines Scrn U Marijuana (THC) Screen Meds: Medications Acetaminophen (Tylenol) 650 mg PO Q6HP PRN; Protocol PRN Reason: Per Pain Protocol/Fever > 101 Allopurinol (Zylopriim) 300 mg PO DAILY [facility] Last Admin: 05/16/19 10:42 Dose: 300 mg Documented by: Alprazolam (Xanax) 1 mg PO BIDP PRN PRN Reason: Anxiety Last Admin: 05/15/19 21:50 Dose: 1 mg Documented by: Amlodipine Besylate (Norvasc) 10 mg PO DAILY [facility] Last Admin: 05/16/19 10:42 Dose: 10 mg Documented by: Artificial Tears (Artificial Tears Ophth Drops) 1 gtt OU Q1HP PRN PRN Reason: Dry Eye(s) Clonazepam (Klonopin) 1 mg PO BID [facility] Last Admin: 05/16/19 10:42 Dose: 1 mg Documented by: Docusate Sodium (Colace) 100 mg PO BID [facility] Last Admin: 05/16/19 10:37 Dose: Not Given Documented by: Heparin Sodium (Porcine) (Heparin) 5,000 unit SQ Q12 [facility] Last Admin: 05/16/19 10:42 Dose: 5,000 unit Documented by: Sodium Chloride (Sodium Chloride 0.9%) 1,000 mls @ 150 mls/hr IV .Q6H40M [facility] Last Admin: 05/16/19 09:17 Dose: 150 mls/hr Documented by: Lactulose (Cephulac) 10 gm PO DAILYP PRN PRN Reason: Constipation Lorazepam (Ativan) 1 mg IV Q4HP PRN PRN Reason: ANXIETY/SEDATION Last Admin: 05/16/19 02:04 Dose: 1 mg Documented by: Metoprolol Tartrate (Lopressor) 25 mg PO BID [facility] Last Admin: 05/16/19 10:42 Dose: 25 mg Documented by: Olanzapine (Zyprexa) 2.5 mg PO DAILY [facility] Last Admin: 05/16/19 10:42 Dose: 2.5 mg Documented by: Ondansetron HCl (Zofran) 4 mg IV Q4HP PRN; Protocol PRN Reason: Nausea And Vomiting Oxybutynin Chloride (Ditropan) 5 mg PO TID [facility] Last Admin: 05/16/19 10:42 Dose: 5 mg Documented by: Senna (Senokot) 2 tab PO HSP PRN PRN Reason: Constipation Sodium Chloride (Saline Flush) 10 ml IV Q8 [facility] Last Admin: 05/16/19 05:33 Dose: 10 ml Documented by: Tamsulosin HCl (Flomax) 0.4 mg PO HS [facility] Last Admin: 05/15/19 21:50 Dose: 0.4 mg Documented by: Zolpidem Tartrate (Ambien) 10 mg PO HSP PRN PRN Reason: Insomnia Last Admin: 05/15/19 21:50 Dose: 10 mg Documented by: - Impressions Renal U/S IMPRESSION: No cause identified for renal failure. 3 cm hypoechoic solid lesion - inferior pole of the right kidney. Suggest: Noncontrast abdominal MRI to evaluate for renal cell carcinoma Medical - PN: A/P - Time Spent With Patient Total time spent is greater than 50% in coordination of care (as documented) at patient's floor/unit and/or counseling patient: Greater than 35 minutes - Narrative A/P Narrative: 48-year-old male with schizophrenia, found in his own yard with abnormal behaviors, found to have acute renal failure and leukocytosis in the ED. Acute renal failure. Improving. At presentation, patient's creatinine was 3.6, was 1.2 in 12/2017. Patient states he does have labs drawn by primary care, recently had blood work done and there is no discussion of renal insufficiency. Etiology is suspected prerenal, fractional excretion of sodium 0.37% and the patient clinically appears quite volume depleted. Urine has significant amounts of hyaline casts present suggesting volume depletion. He was mildly hypotensive and tachycardic at presentation, again consistent with volume issues. Etiology of volume depletion could be related to psychosis, possible methamphetamine use with contribution by diuretic for hypertension. ATN is also a possibility secondary to dehydration low blood pressure. No recent contrast exposures. Urine Eos negative. Continue volume resuscitation Coello catheter for close intake and output monitoring (placed in the ED) No further improvement, will likely need to get renal involved Leukocytosis. Resolved. May have been related to stress. No evidence of infection on physical exam, radiograph or urine analysis. He did receive antibiotics in the ED and has been cultured. Monitor expectantly Follow-up cultures Begin antibiotics if evidence of infection Metabolic acidosis with increased anion gap. Lactate is normal 1.3. Suspect this may be acidosis related to renal failure. Monitor with hydration and correction of renal failure Schizophrenia. Appears with some disordered thoughts, but no active hallucinations, has been evaluated by [facility] and is not felt to be of danger. Continues to have psychomotor agitation, this baby withdrawal symptoms from an ingestion a few days prior to admission with his history of having ingested an u nknown substance at a house [place]. Continue olanzapine; consider adding bedtime dose; supportive care. Anxiety. The patient is on clonazepam at baseline Continue CODE STATUS: Full code
--- NOTE | 2019-05-16 14:09 | Internal Med Progress Note ---
Medical - PN: Subj Patient information: Note initiated : 05/16/19 at 2:04 pm Service Date, if different from initiated Date: [] Patient: Zak Aburto a 48 y/o M admitted on 05/15/19 for Psych Symptoms. Chief Complaint: [] Interval history: 05/15 Mr. Aburto is a 48 year old M with a history of schizophrenia, hypertension, anxiety, history of alcohol abuse who presents the ED brought in by law enforcement after he was found out in his yard. Patient has no recollection of those events. History is obtained speaking with the ED provider as well as the patient. Apparently on the day of admission, the patient was out in the porch and then front yard waving his arms around, yelling and not making sense. Multiple people were concerned and law enforcement was called. He is brought to the ED for evaluation. He smelled of urine and his clothing was wet with urine. He was pleasant, but could not provide history initially. He was evaluated by mental health and felt not to be a threat to himself or others. Further evaluation in the ED showed a creatinine of 3.6, which is apparently new as well as a white count of 17,000. No particular source of infection was found, he is now being admitted for further evaluation of renal failure. Patient history is a bit meandering and occasionally tangential. He tells me he woke up this morning ready to do some work. About lunch she is feeling hungry, did not want fast food and went to the store. He last remembers putting away some items he gotten. Does not remember much after that. Recalls that he is told that he was initially on the porch and then in the front yard. He denies any active hallucinations. He thinks he has had normal urine output, urinating about 3 times a day, though is noted that is become "foamy" over the last 1 to 2 days. He has noted no blood in his urine. No dysuria, no hesitancy. He is taking his current medications which include hydrochlorothiazide and losartan. Initially he said he had recently started a supplement, though subsequently states that was Centrum silver vitamins, because he had turned 48. 05/16 Patient was very active. Overnight, moving around with psychomotor agitation. He is not combative. Reports my these. Received dose Seroquel without much effect, also received lorazepam. This morning he is more lucid, he did note that he and some friends ingested a unknown white powder at a green party a few days ago. Creatinine is improved to 3.1 this morning. Continues with good urine output. Fractional excretion of sodium 0.37% - Constitutional Vitals: Vital Signs Temp Pulse Resp BP Pulse Ox 98.1 F 95 H 22 94/59 100 05/16/19 04:02 05/16/19 01:03 05/16/19 12:11 05/16/19 11:21 05/16/19 11:21 Period Temp Pulse Resp BP Sys/Tarango Pulse Ox Last 24 Hr 97.2 F-98.2 F 79-98 14-35 48-141/33-123 91-100 Intake and Output 05/16/19 05/16/19 05/16/19 05:59 13:59 21:59 Intake Total 1870 1120 Output Total 300 104 Balance 1570 1016 Weight 90.401 kg Patient Weight 05/17/19 05:59 Weight 90.401 kg Intake & Output: Intake & Output 05/16/19 05/16/19 05/16/19 05:59 13:59 21:59 Intake Total 1870 1120 Output Total 300 104 Balance 1570 1016 Weight 90.401 kg Intake: IV 910 1000 Sodium Chloride 0.9% 1,000 ml @ 910 1000 150 mls/hr IV .Q6H40M [facility] Rx#: [id number] Oral 960 120 Output: Urine Catheter Amount 300 Void Amount 100 # of times incontinent of urine 4 Other: Meal Breakfast Percent of Meal Consumed 100% Feeding Ability Independent Urine Appearance Clear Urine Color Bright Yellow Stool Size Smear Stool Color Brown Yellow Stool Consistency Liquid # of times incontinent of 1 Bowels Exam: General: Alert, Awake, No acute Distress Eyes/N/T: EOMI, Head/Neck: neck supple, CV: RRR, No murmurs, Pulm: Clear b/l, no wheezing/rhonchi/rales Abd: soft, nontender, +BS x4 Ext: no clubbing/cyanosis/edema Neuro: Alert, no focal deficits, moves all extremities, Skin: warm/dry Medical - PN: Obj Da - Labs CBC & Chem 7: 05/16/19 04:11 05/16/19 04:11 Labs: Abnormal Lab Results 05/16/19 05/16/19 05/15/19 04:11 04:11 16:13 WBC RBC 3.22 L Hgb 10.3 L Hct 31.2 L RDW 15.5 H Gran % Lymph % (Auto) Gran # Lymph # (Auto) Chloride Carbon Dioxide 15 L Anion Gap 24.0 H BUN 43 H Creatinine 3.1 H Glucose 59 L Uric Acid 14.6 H Phosphorus 4.8 H GGT 108 H AST 104 H ALT 44 H Lactate Dehydrogenase 289 H Total Creatine Kinase Triglycerides 165 H Urine Protein Urine Ketones Urine Occult Blood Urine RBC Urine WBC Hyaline Casts Ur Amphetamines Screen Suspect positive A U Benzodiazepines Scrn Suspect positive A U Marijuana (THC) Screen Suspect positive A 05/15/19 05/15/19 05/15/19 16:13 14:05 14:05 WBC RBC Hgb Hct RDW Gran % Lymph % (Auto) Gran # Lymph # (Auto) Chloride 90 L Carbon Dioxide 14 L Anion Gap 31.0 H BUN 45 H Creatinine 3.6 H Glucose 64 L Uric Acid Phosphorus GGT AST 80 H ALT 48 H Lactate Dehydrogenase Total Creatine Kinase 909 H Triglycerides Urine Protein 100 A Urine Ketones 5/tr A Urine Occult Blood 0.03 A Urine RBC 4 H Urine WBC 6 H Hyaline Casts 100 H Ur Amphetamines Screen U Benzodiazepines Scrn U Marijuana (THC) Screen 05/15/19 14:05 WBC 17.1 H RBC 4.09 L Hgb 13.2 L Hct 37.8 L RDW 14.6 H Gran % 90.1 H Lymph % (Auto) 5.7 L Gran # 15.40 H Lymph # (Auto) 0.98 L Chloride Carbon Dioxide Anion Gap BUN Creatinine Glucose Uric Acid Phosphorus GGT AST ALT Lactate Dehydrogenase Total Creatine Kinase Triglycerides Urine Protein Urine Ketones Urine Occult Blood Urine RBC Urine WBC Hyaline Casts Ur Amphetamines Screen U Benzodiazepines Scrn U Marijuana (THC) Screen Meds: Medications Acetaminophen (Tylenol) 650 mg PO Q6HP PRN; Protocol PRN Reason: Per Pain Protocol/Fever > 101 Allopurinol (Zylopriim) 300 mg PO DAILY [facility] Last Admin: 05/16/19 10:42 Dose: 300 mg Documented by: Alprazolam (Xanax) 1 mg PO BIDP PRN PRN Reason: Anxiety Last Admin: 05/15/19 21:50 Dose: 1 mg Documented by: Amlodipine Besylate (Norvasc) 10 mg PO DAILY [facility] Last Admin: 05/16/19 10:42 Dose: 10 mg Documented by: Artificial Tears (Artificial Tears Ophth Drops) 1 gtt OU Q1HP PRN PRN Reason: Dry Eye(s) Clonazepam (Klonopin) 1 mg PO BID [facility] Last Admin: 05/16/19 10:42 Dose: 1 mg Documented by: Docusate Sodium (Colace) 100 mg PO BID [facility] Last Admin: 05/16/19 10:37 Dose: Not Given Documented by: Heparin Sodium (Porcine) (Heparin) 5,000 unit SQ Q12 [facility] Last Admin: 05/16/19 10:42 Dose: 5,000 unit Documented by: Sodium Chloride (Sodium Chloride 0.9%) 1,000 mls @ 150 mls/hr IV .Q6H40M [facility] Last Admin: 05/16/19 09:17 Dose: 150 mls/hr Documented by: Lactulose (Cephulac) 10 gm PO DAILYP PRN PRN Reason: Constipation Lorazepam (Ativan) 1 mg IV Q4HP PRN PRN Reason: ANXIETY/SEDATION Last Admin: 05/16/19 02:04 Dose: 1 mg Documented by: Metoprolol Tartrate (Lopressor) 25 mg PO BID [facility] Last Admin: 05/16/19 10:42 Dose: 25 mg Documented by: Olanzapine (Zyprexa) 2.5 mg PO DAILY [facility] Last Admin: 05/16/19 10:42 Dose: 2.5 mg Documented by: Ondansetron HCl (Zofran) 4 mg IV Q4HP PRN; Protocol PRN Reason: Nausea And Vomiting Oxybutynin Chloride (Ditropan) 5 mg PO TID [facility] Last Admin: 05/16/19 10:42 Dose: 5 mg Documented by: Senna (Senokot) 2 tab PO HSP PRN PRN Reason: Constipation Sodium Chloride (Saline Flush) 10 ml IV Q8 [facility] Last Admin: 05/16/19 05:33 Dose: 10 ml Documented by: Tamsulosin HCl (Flomax) 0.4 mg PO HS [facility] Last Admin: 05/15/19 21:50 Dose: 0.4 mg Documented by: Zolpidem Tartrate (Ambien) 10 mg PO HSP PRN PRN Reason: Insomnia Last Admin: 05/15/19 21:50 Dose: 10 mg Documented by: Medical - PN: A/P - Time Spent With Patient Total time spent is greater than 50% in coordination of care (as documented) at patient's floor/unit and/or counseling patient: - Narrative A/P Narrative: A: *Acute renal failure: Improving -At presentation, patient's creatinine was 3.6, was 1.2 in 12/2017. -Etiology is suspected prerenal, fractional excretion of sodium 0.37% and the patient clinically appears quite volume depleted. -Urine has significant amounts of hyaline casts present suggesting volume depletion. -He was mildly hypotensive and tachycardic at presentation, again consistent with volume issues. E -etiology of volume depletion could be related to psychosis, possible methamphetamine use with contribution by diuretic for hypertension. -ATN is also a possibility secondary to dehydration low blood pressure. No recent contrast exposures. Urine Eos negative. *Leukocytosis: Resolved. May have been related to stress. No evidence of infection on physical exam, radiograph or urine analysis. *Metabolic acidosis with increased anion gap. Lactate is normal 1.3. Suspect this may be acidosis related to renal failure. *Schizophrenia: Appears with some disordered thoughts, but no active hallucinations, has been evaluated by [facility] and is not felt to be of danger. - Continues to have psychomotor agitation, withdrawal symptoms from an ingestion a few days prior to admission with his history of having ingested an unknown substance at a house green party. *Anxiety. The patient is on clonazepam at baseline P: Continue volume resuscitation Coello catheter for close intake and output monitoring (placed in the ED) Monitor expectantly Follow-up cultures Begin antibiotics if evidence of infection Continue olanzapine; consider adding bedtime dose; supportive care. -ppx: heparin CODE STATUS: Full code
[2019-05-16] MEDS: TAMSULOSIN 0.4 MG CAPSULE PO SCH (21:07)
[2019-05-17] MEDS: 0.9 % SODIUM CHLORIDE 1,000 ML IV SCH ×2 (00:25→07:34)
[2019-05-17 07:16] LABS: ALT/SGPT 39 U/l (0-40); AST/SGOT 79 U/l (0-37); Albumin 3.6 gm/dL (3.2-5.2); Albumin/Globulin Ratio 1.4 (1.0-2.3); Alkaline Phosphatase 50 U/L (39-117); Bilirubin,Total 0.3 mg/dL (0.0-1.0); Calcium 8.7 mg/dl (8.6-10.4); Chloride 105 mmol/L (96-108); Globulin 2.5 gm/dL (2.2-3.7); Glucose 92 mg/dL (70-105); Lactate Dehydrogenase 232 U/L (94-250); Triglycerides 181 mg/dl (<150)
[2019-05-17 07:17] LABS: Bilirubin,Direct < 0.2 mg/dL (0.0-0.3); Blood Urea Nitrogen 27 mg/dl (6-20); Carbon Dioxide 19 mmol/L (22-30); Glomerular Filtration Rate 40; Phosphorous 3.1 mg/dL (2.7-4.5)
[2019-05-17] MEDS: 0.9 % SODIUM CHLORIDE 10 ML SYRINGE IV SCH (07:28)
--- NOTE | 2019-05-17 07:57 | Internal Med Progress Note ---
Medical - PN: Subj Patient information: Note initiated : 05/17/19 at 7:53 am Service Date, if different from initiated Date: [] Patient: Zak Aburto a 48 y/o M admitted on 05/15/19 for Psych Symptoms. Chief Complaint: [] Interval history: 05/15 Mr. Aburto is a 48 year old M with a history of schizophrenia, hypertension, anxiety, history of alcohol abuse who presents the ED brought in by law enforcement after he was found out in his yard. Patient has no recollection of those events. History is obtained speaking with the ED provider as well as the patient. Apparently on the day of admission, the patient was out in the porch and then front yard waving his arms around, yelling and not making sense. Multiple people were concerned and law enforcement was called. He is brought to the ED for evaluation. He smelled of urine and his clothing was wet with urine. He was pleasant, but could not provide history initially. He was evaluated by mental health and felt not to be a threat to himself or others. Further evaluation in the ED showed a creatinine of 3.6, which is apparently new as well as a white count of 17,000. No particular source of infection was found, he is now being admitted for further evaluation of renal failure. Patient history is a bit meandering and occasionally tangential. He tells me he woke up this morning ready to do some work. About lunch she is feeling hungry, did not want fast food and went to the store. He last remembers putting away some items he gotten. Does not remember much after that. Recalls that he is told that he was initially on the porch and then in the front yard. He denies any active hallucinations. He thinks he has had normal urine output, urinating about 3 times a day, though is noted that is become "foamy" over the last 1 to 2 days. He has noted no blood in his urine. No dysuria, no hesitancy. He is taking his current medications which include hydrochlorothiazide and losartan. Initially he said he had recently started a supplement, though subsequently states that was Centrum silver vitamins, because he had turned 48. 05/16 Patient was very active. Overnight, moving around with psychomotor agitation. He is not combative. Reports my these. Received dose Seroquel without much effect, also received lorazepam. This morning he is more lucid, he did note that he and some friends ingested a unknown white powder at a alliance party a few days ago. Creatinine is improved to 3.1 this morning. Continues with good urine output. Fractional excretion of sodium 0.37% / no overnight event or new complaints. Creatinine down to 1.9. Patient doing well no new complaints. Q coming to assess the patient. possible discharge later. Review of Systems: denies headache/fever/chills/nausea/vomiting/chest or abdominal pain/cough/dyspnea/diarrhea. Otherwise see above. - Constitutional Vitals: Vital Signs Temp Pulse Resp BP Pulse Ox 99.1 F H 95 H 23 H 123/87 97 05/17/19 07:00 05/16/19 01:03 05/17/19 07:00 05/17/19 02:11 05/17/19 07:00 Period Temp Pulse Resp BP Sys/T[place]ango Pulse Ox Last 24 Hr 97.2 F-99.1 F 17-30 94-123/50-96 93-100 Intake and Output 05/16/19 05/17/19 05/17/19 21:59 05:59 13:59 Intake Total 1720 1000 1100 Output Total 1 750 Balance 4864 082 5733 Weight 91.807 kg Intake & Output: Intake & Output 05/16/19 05/17/19 05/17/19 21:59 05:59 13:59 Intake Total 1720 1000 1100 Output Total 1 750 Balance 0320 578 7706 Weight 91.807 kg Intake: IV 1000 1000 1000 Sodium Chloride 0.9% 1,000 ml @ 1000 1000 1000 150 mls/hr IV .Q6H40M [facility] Rx#: [id number] Oral 720 100 Output: Void Amount 750 # of times incontinent of urine 1 Other: Meal Dinner Percent of Meal Consumed 100% Feeding Ability Assist with Tray Set Up Urine Appearance Clear Clear Urine Color Bright Yellow Bright Yellow Stool Size Small Small Stool Color Brown Brown Stool Consistency Soft Soft Loose Loose # Bowel Movements 1 # of times incontinent of 1 Bowels Exam: General: Alert, Awake, No acute Distress Eyes/N/T: EOMI, Head/Neck: neck supple, CV: RRR, No murmurs, Pulm: Clear b/l, no wheezing/rhonchi/rales Abd: soft, nontender, +BS x4 Ext: no clubbing/cyanosis/edema Neuro: Alert, no focal deficits, moves all extremities, Skin: warm/dry Medical - PN: Obj Da - Labs CBC & Chem 7: 05/16/19 04:11 05/17/19 05:31 Labs: Abnormal Lab Results 05/17/19 05/16/19 05/16/19 05:31 04:11 04:11 WBC RBC 3.22 L Hgb 10.3 L Hct 31.2 L RDW 15.5 H Gran % Lymph % (Auto) Gran # Lymph # (Auto) Chloride Carbon Dioxide 19 L 15 L Anion Gap 24.0 H BUN 27 H 43 H Creatinine 1.9 H 3.1 H Glucose 59 L Uric Acid 9.0 H 14.6 H Phosphorus 4.8 H GGT 88 H 108 H AST 79 H 104 H ALT 44 H Lactate Dehydrogenase 289 H Total Creatine Kinase Triglycerides 181 H 165 H Urine Protein Urine Ketones Urine Occult Blood Urine RBC Urine WBC Hyaline Casts Ur Amphetamines Screen U Benzodiazepines Scrn U Marijuana (THC) Screen 05/15/19 05/15/19 05/15/19 16:13 16:13 14:05 WBC RBC Hgb Hct RDW Gran % Lymph % (Auto) Gran # Lymph # (Auto) Chloride Carbon Dioxide Anion Gap BUN Creatinine Glucose Uric Acid Phosphorus GGT AST ALT Lactate Dehydrogenase Total Creatine Kinase 909 H Triglycerides Urine Protein 100 A Urine Ketones 5/tr A Urine Occult Blood 0.03 A Urine RBC 4 H Urine WBC 6 H Hyaline Casts 100 H Ur Amphetamines Screen Suspect positive A U Benzodiazepines Scrn Suspect positive A U Marijuana (THC) Screen Suspect positive A 05/15/19 05/15/19 14:05 14:05 WBC 17.1 H RBC 4.09 L Hgb 13.2 L Hct 37.8 L RDW 14.6 H Gran % 90.1 H Lymph % (Auto) 5.7 L Gran # 15.40 H Lymph # (Auto) 0.98 L Chloride 90 L Carbon Dioxide 14 L Anion Gap 31.0 H BUN 45 H Creatinine 3.6 H Glucose 64 L Uric Acid Phosphorus GGT AST 80 H ALT 48 H Lactate Dehydrogenase Total Creatine Kinase Triglycerides Urine Protein Urine Ketones Urine Occult Blood Urine RBC Urine WBC Hyaline Casts Ur Amphetamines Screen U Benzodiazepines Scrn U Marijuana (THC) Screen Meds: Medications Acetaminophen (Tylenol) 650 mg PO Q6HP PRN; Protocol PRN Reason: Per Pain Protocol/Fever > 101 Allopurinol (Zylopriim) 300 mg PO DAILY [facility] Last Admin: 05/16/19 10:42 Dose: 300 mg Documented by: Alprazolam (Xanax) 1 mg PO BIDP PRN PRN Reason: Anxiety Last Admin: 05/15/19 21:50 Dose: 1 mg Documented by: Amlodipine Besylate (Norvasc) 10 mg PO DAILY [facility] Last Admin: 05/16/19 10:42 Dose: 10 mg Documented by: Artificial Tears (Artificial Tears Ophth Drops) 1 gtt OU Q1HP PRN PRN Reason: Dry Eye(s) Clonazepam (Klonopin) 1 mg PO BID [facility] Last Admin: 05/16/19 21:08 Dose: 1 mg Documented by: Docusate Sodium (Colace) 100 mg PO BID [facility] Last Admin: 05/16/19 21:08 Dose: 100 mg Documented by: Heparin Sodium (Porcine) (Heparin) 5,000 unit SQ Q12 [facility] Last Admin: 05/16/19 21:07 Dose: 5,000 unit Documented by: Sodium Chloride (Sodium Chloride 0.9%) 1,000 mls @ 150 mls/hr IV .Q6H40M [facility] Last Admin: 05/17/19 07:34 Dose: 150 mls/hr Documented by: Lactulose (Cephulac) 10 gm PO DAILYP PRN PRN Reason: Constipation Lorazepam (Ativan) 1 mg IV Q4HP PRN PRN Reason: ANXIETY/SEDATION Last Admin: 05/16/19 02:04 Dose: 1 mg Documented by: Metoprolol Tartrate (Lopressor) 25 mg PO BID [facility] Last Admin: 05/16/19 21:08 Dose: 25 mg Documented by: Olanzapine (Zyprexa) 2.5 mg PO DAILY [facility] Last Admin: 05/16/19 10:42 Dose: 2.5 mg Documented by: Ondansetron HCl (Zofran) 4 mg IV Q4HP PRN; Protocol PRN Reason: Nausea And Vomiting Oxybutynin Chloride (Ditropan) 5 mg PO TID [facility] Last Admin: 05/16/19 21:07 Dose: 5 mg Documented by: Senna (Senokot) 2 tab PO HSP PRN PRN Reason: Constipation Sodium Chloride (Saline Flush) 10 ml IV Q8 [facility] Last Admin: 05/17/19 07:28 Dose: Not Given Documented by: Tamsulosin HCl (Flomax) 0.4 mg PO HS [facility] Last Admin: 05/16/19 21:07 Dose: 0.4 mg Documented by: Zolpidem Tartrate (Ambien) 10 mg PO HSP PRN PRN Reason: Insomnia Last Admin: 05/15/19 21:50 Dose: 10 mg Documented by: Medical - PN: A/P - Time Spent With Patient Total time spent is greater than 50% in coordination of care (as documented) at patient's floor/unit and/or counseling patient: - Narrative A/P Narrative: A: *DYANA: Improving -At presentation, patient's creatinine was 3.6, was 1.2 in 12/2017. -Etiology is suspected prerenal, fractional excretion of sodium 0.37% and the patient clinically appears quite volume depleted. -etiology of volume depletion could be related to psychosis, possible methamphetamine use with contribution by diuretic for hypertension. -ATN is also a possibility secondary to dehydration low blood pressure. No recent contrast exposures. Urine Eos negative. *Leukocytosis: Resolved. May have been related to stress. No evidence of infection on physical exam, radiograph or urine analysis. *Metabolic acidosis with increased anion gap: Lactate is normal 1.3. Suspect this may be acidosis related to renal failure. REsolved *Schizophrenia: Appears with some disordered thoughts, but no active hallucinations, has been evaluated by [facility] and is not felt to be of danger. - Continues to have psychomotor agitation, withdrawal symptoms from an ingestion a few days prior to admission with his history of having ingested an unknown substance at a house alliance party. *Anxiety. The patient is on clonazepam at baseline *Substance Abuse: -UDS with amphetamines P: stop IVF Coello catheter for close intake and output monitoring (placed in the ED), d/c Continue olanzapine; consider adding bedtime dose; supportive care. - -ppx: heparin CODE STATUS: Full code
[2019-05-17] MEDS: HEPARIN 5,000 UNIT/ML VIAL SQ SCH (08:21)
[2019-05-17] MEDS: clonazePAM 1 MG TABLET PO SCH (08:22)
[2019-05-17] MEDS: ALLOPURINOL 300 MG TABLET PO SCH (08:22)
[2019-05-17] MEDS: OLANZapine 2.5 MG TABLET PO SCH (08:22)
[2019-05-17] MEDS: METOPROLOL TARTRATE 25 MG TABLET PO SCH (08:22)
[2019-05-17] MEDS: amLODIPine 10 MG TABLET PO SCH (08:22)
[2019-05-17] MEDS: OXYBUTYNIN CHLORIDE 5 MG TABLET PO SCH (08:22)
[2019-05-17] MEDS: DOCUSATE SODIUM 100 MG CAPSULE PO SCH (08:22)
--- NOTE | 2019-05-17 11:57 | Discharge Summary ---
Medical - DS: Prov Patient information: Note initiated : 05/17/19 at 11:56 am Service Date, if different from initiated Date: [] Patient: Zak Aburto 48 y/o M admitted on 05/15/19 for Psych Symptoms. Chief Complaint: [] Date of admission: 05/15/19 19:00 Discharge date: 05/17/19 Primary care physician: PCP No Consults: 05/16/19 07:47 Consult to Physician [CONS] Routine Comment: Consulting Provider: Deb Zhu Reason For Exam: Physician to Consult Medical - DS: Meds - Discharge Medications Active and Home Medications: Home Medications ALPRAZolam [Xanax] 1 mg PO BIDP PRN 05/15/19 [History Confirmed 05/15/19 Last Taken 05/15/19] Allopurinol [Zylopriim] 300 mg PO DAILY 05/15/19 [History Confirmed 05/15/19 Last Taken 05/12/19] Cyclobenzaprine [Flexeril] 10 mg PO HSP PRN 05/15/19 [History Confirmed 05/15/19 Last Taken 05/14/19] Hydrochlorothiazide [Oretic] 25 mg PO DAILY 05/15/19 [History Confirmed 05/15/19 Last Taken 05/15/19] Losartan Potassium [Cozaar] 100 mg PO DAILY 05/15/19 [History Confirmed 05/15/19 Last Taken 05/15/19] Metoprolol Tartrate [Lopressor] 25 mg PO BID 05/15/19 [History Confirmed 05/15/19 Last Taken 05/15/19] OLANZapine [Olanzapine] 2.5 mg PO DAILY 05/15/19 [History Confirmed 05/15/19 Last Taken 05/15/19] Zolpidem [Ambien] 10 mg PO HSP PRN 05/15/19 [History Confirmed 05/15/19 Last Taken 05/14/19] amLODIPine [Norvasc] 10 mg PO DAILY 05/15/19 [History Confirmed 05/15/19 Last Taken 05/15/19] clonazePAM [KlonoPIN] 1 mg PO BID 05/15/19 [History Confirmed 05/15/19 Last Taken Unknown] Medical - DS: Hosp Hospital Course: 05/15 Mr. Aburto is a 48 year old M with a history of schizophrenia, hypertension, anxiety, history of alcohol abuse who presents the ED brought in by law enforcement after he was found out in his yard. Patient has no recollection of those events. History is obtained speaking with the ED provider as well as the patient. Apparently on the day of admission, the patient was out in the porch and then front yard waving his arms around, yelling and not making sense. Multiple people were concerned and law enforcement was called. He is brought to the ED for evaluation. He smelled of urine and his clothing was wet with urine. He was pleasant, but could not provide history initially. He was evaluated by mental health and felt not to be a threat to himself or others. Further evaluation in the ED showed a creatinine of 3.6, which is apparently new as well as a white count of 17,000. No particular source of infection was found, he is now being admitted for further evaluation of renal failure. Patient history is a bit meandering and occasionally tangential. He tells me he woke up this morning ready to do some work. About lunch she is feeling hungry, did not want fast food and went to the store. He last remembers putting away some items he gotten. Does not remember much after that. Recalls that he is told that he was initially on the porch and then in the front yard. He denies any active hallucinations. He thinks he has had normal urine output, urinating about 3 times a day, though is noted that is become "foamy" over the last 1 to 2 days. He has noted no blood in his urine. No dysuria, no hesitancy. He is taking his current medications which include hydrochlorothiazide and losartan. Initially he said he had recently started a supplement, though subsequently states that was Centrum silver vitamins, because he had turned 48. 1/2 Patient was very active. Overnight, moving around with psychomotor agitation. He is not combative. Reports my these. Received dose Seroquel without much effect, also received lorazepam. This morning he is more lucid, he did note that he and some friends ingested a unknown white powder at a libertarian a few days ago. Creatinine is improved to 3.1 this morning. Continues with good urine output. Fractional excretion of sodium 0.37% 05/17 no overnight event or new complaints. Creatinine down to 1.9. Patient doing well no new complaints. [facility] coming to assess the patient. possible discharge later. cleared by [facility]. f/u with psychiatry. Discharge diagnosis: Acute kidney injury metabolic acidosis schizophrenia anxiety substance abus - Time Spent with Patient Total time spent providing and/or coordinating discharge services: Greater than 30 minutes Medical - DS: Exam - Constitutional Vitals: Vital Signs Temp Resp BP Pulse Ox 05/17/19 08:00 99 F 24 H 121/85 97 05/17/19 07:00 99.1 F H 23 H 97 05/17/19 04:29 23 H 05/17/19 02:11 27 H 123/87 98 05/17/19 02:00 30 H 98 05/16/19 23:54 97.2 F 23 H 108/72 98 05/16/19 20:00 28 H 100 05/16/19 19:18 97.3 F 23 H 103/68 100 05/16/19 16:05 23 H 05/16/19 15:55 27 H 102/60 05/16/19 15:21 97.7 F 05/16/19 14:00 19 93 05/16/19 12:11 22 Intake and Output 05/16/19 05/17/19 05/17/19 21:59 05:59 13:59 Intake Total 1720 1000 1590 Output Total 1 750 Balance 7152 340 3343 Intake: IV 1000 1000 1070 Sodium Chloride 0.9% 1,000 ml @ 1000 1000 1070 150 mls/hr IV .Q6H40M [facility] Rx#: [id number] Oral 720 520 Output: Void Amount 750 # of times incontinent of urine 1 Other: Meal Dinner Breakfast Percent of Meal Consumed 100% 100% Feeding Ability Assist with Tray Set Up Urine Appearance Clear Clear Urine Color Bright Yellow Bright Yellow Stool Size Small Small Stool Color Brown Brown Stool Consistency Soft Soft Loose Loose # Bowel Movements 1 # of times incontinent of 1 Bowels Weight 91.807 kg Medical - DS: Data Labs on day of discharge: Labs from last 24 hours 05/17/19 05:31 Sodium 136 Potassium 4.1 Chloride 105 Carbon Dioxide 19 L Anion Gap 12.0 BUN 27 H Creatinine 1.9 H GFR Calculation 40 Glucose 92 Uric Acid 9.0 H Calcium 8.7 Phosphorus 3.1 Magnesium 1.8 Total Bilirubin 0.3 Direct Bilirubin < 0.2 GGT 88 H AST 79 H ALT 39 Alkaline Phosphatase 50 Lactate Dehydrogenase 232 Total Protein 6.1 Albumin 3.6 Globulin 2.5 Albumin/Globulin Ratio 1.4 Triglycerides 181 H Preliminary micro results at discharge 05/15/19 16:21 Blood Culture - Preliminary Blood 05/15/19 16:25 Blood Culture - Preliminary Blood Medical - DS: A/P - Patient/Caregiver Discharge Instructions Activity: increase activity as tolerated Diet: Regular Diet Additional Instructions: Referral to see psychiatrist in 5 to 10 days - Follow up Plan Follow up with: Vishnu Rankin ARNP [Nurse Practitioner] - 05/23/19 11:30 am (PCP) Trisha Hoyos DO [Physician] - (A referral has been sent they will contact you to schedule an appointment.) Disposition: Home, Self-Care Prognosis: Fair Rehab Potential: Fair Overall status at discharge: patient is back to baseline
== END 2019-05-17 13:26 | disposition home or self-care (01) | DRG 683 ==
LOC: ED 13:31 → ICU 19:00
PROVIDERS: ADMIT Internal Medicine; ATTEND Internal Medicine

== ENCOUNTER 2019-11-01 16:46 | Inpatient (IN) ==
[2019-11-01 18:08] LABS: Hematocrit 33.4 % (40.1-51.0); Hemoglobin 11.9 g/dL (13.7-17.5); Mean Corpuscular HGB Conc 35.6 g/dL (31.0-36.0); Mean Platelet Volume 10.2 fL (7.4-10.4); RBC 3.71 M/mcL (4.63-6.08); Red Cell Distribution Width 15.2 % (11.5-14.5); WBC 5.2 K/mcL (4.50-11.00)
[2019-11-01 18:11] LABS: Platelet Count 133 K/mcL (140-440)
[2019-11-01 18:30] LABS: ALT/SGPT 57 U/l (0-40); AST/SGOT 73 U/l (0-37); Albumin 4.2 gm/dL (3.2-5.2); Albumin/Globulin Ratio 1.3 (1.0-2.3); Alkaline Phosphatase 67 U/L (39-117); Bilirubin,Total 0.6 mg/dL (0.0-1.0); Blood Urea Nitrogen 33 mg/dl (6-20); Calcium 9.4 mg/dl (8.6-10.4); Carbon Dioxide 22 mmol/L (22-30); Globulin 3.3 gm/dL (2.2-3.7); Glomerular Filtration Rate 21; Glucose 100 mg/dL (70-105)
[2019-11-01] MEDS ORDERED: MULTIVIT,THER IRON,CA,FA & MIN 1 TABLET PO ONE (18:37)
[2019-11-01] MEDS ORDERED: LORazepam 2 MG/ML VIAL IV ONE (18:37)
--- NOTE | 2019-11-01 18:37 | Emergency Department Note ---
HPI General Chief complaint: Weakness Stated complaint: weakness Time Seen by Provider: 11/01/19 18:07 Source: patient Mode of arrival: EMS Limitations: physical limitation History of Present Illness HPI Narrative: Patient told nursing staff that he thinks he is going into renal failure. He has been weak and feeling muscle fatigue as well as some cramping. He has been lightheaded and dizzy. He also had some shortness of breath 6 days ago, was seen at [facility], and had COVID testing. It was suggested to him that his shortness of breath was possibly cardiac related instead but he has no cardiac history. He was told at one time that he had a slight PR 3 years ago at [facility] but had follow-up in this hospital where that was questioned. He is on 3 blood pressure medications but has not taken all of these. He reports that he is not slept for 5 days because of twitching. He used to have a muscle relaxant and was told that he might have restless leg syndrome. He has been unable to eat or drink hardly well at all for several days. He describes his bowels as dysentery like there is straight yellow water. He is vomited once today 3 times yesterday twice the day before. He is tried to keep some water down. He is tried alcohol but even this has been vomited. He has some mild epigastric or lower abdominal pain pinching in nature and was crampy this morning. He only has small amounts of urine that seem to be somewhat incontinent when he stands up. His last normal urination was 2 weeks ago he says. He admits to some troubles emptying but does not specifically endorse prostate disorder disease. He sees Dr. Hoyos for alcoholism. She convinced him to take a sleep medicine but he has not taken that all that much. He has had alcohol withdrawal in the past but no DTs. No history of seizures. He has had lorazepam in the past. He has never been on Antabuse. He denies heroin and methamphetamine but has used marijuana in the past but last was about 3 weeks ago. His shortness of breath is a little bit better. Related Data Home Medications Medication Instructions Recorded Confirmed allopurinol 300 mg PO DAILY 05/15/19 11/01/19 amlodipine 10 mg PO DAILY 05/15/19 11/01/19 hydrochlorothiazide 25 mg PO DAILY 05/15/19 11/01/19 losartan 100 mg PO DAILY 05/15/19 11/01/19 metoprolol tartrate 25 mg PO BID 05/15/19 11/01/19 naltrexone 50 mg tablet 50 mg PO QDAY tab 09/16/19 11/01/19 Previous Rx's Medication Instructions Recorded cholecalciferol (vitamin D3) 50 50 mcg PO QDAY #90 cap 10/04/19 mcg (2,000 unit) capsule mirtazapine 15 mg tablet 7.5 mg PO QHS #30 tab 10/17/19 albuterol sulfate 90 mcg/actuation 2 puff INHALATION .q4-6h PRN #8.5 g 10/26/19 aerosol inhaler Allergies Allergy/AdvReac Type Severity Reaction Status Date / Time No Known Drug Allergies Allergy Verified 11/01/19 16:48 Review of Systems ROS Narrative: See HPI. No other volunteered signs or symptoms. [facility] Medical/Surgical/Family History All Active Problems (Updated 11/01/19 @ 20:49 by Fernando Lawrence DO) Acute hyponatremia (Acute) Acute renal failure (ARF) (Acute) Acute dehydration (Acute) Nausea and vomiting (Acute) Diarrhea (Acute) Hyponatremia with decreased serum osmolality (Acute) Right renal mass (Chronic) Myocardial infarction (Chronic ~2018) Hypertension (Chronic) Anxiety (Chronic) Dehydration (Chronic) Confusion (Chronic) Acute renal failure (Acute) Polysubstance abuse (Chronic) Medical History (Updated 11/01/19 @ 20:49 by Fernando Lawrence DO) Acute renal failure (Acute) Anxiety (Chronic) Confusion (Chronic) Dehydration (Chronic) Hy[facility]ension ([facility]) [facility] Hyponatremia with decreased serum osmolality (Acute) Myocardial infarction (Chronic ~2018) Polysubstance abuse (Chronic) Surgical History No pertinent past surgical history (Chronic) Family History Grandfather HTN (hypertension) Myocardial infarct Other No pertinent family history Social History Smoking Status: Former smoker Alcohol Intake Frequency: a few times a month Substance Use: former substance user, marijuana, amphetamines and other Exam General Limitations: physical limitation General appearance: alert, malaise (Mild) and nontoxic Head Head: atraumatic and normocephalic Eye Eye: Present EOMI; Absent scleral icterus ENT ENT: Present mucous membranes dry Neck Neck: Present trachea midline and thyromegaly; Absent lymphadenopathy Chest Chest: Present symmetric chest wall rise Respiratory Respiratory: Present normal lung sounds bilaterally; Absent respiratory distress, wheezes, stridor, accessory muscle use and prolonged expiratory phase Cardiovascular Cardiovascular: Present regular rate and normal rhythm; Absent systolic murmur and diastolic murmur Adbominal Abdominal: Present soft; Absent distention, tenderness, guarding, rebound, rigidity, organomegaly and mass Extremities Extremities: Absent pedal edema, pretibial edema and calf tenderness Neurological Neurological: Present alert, oriented X3, CN II-XII intact and other Psychiatric Psychiatric: Present serious, polite and pleasant; Absent depressed, agitated, anxious, flat affect, suicidal ideation and poor eye contact Skin Skin: Absent rash, diaphoresis and mottled Course Vital Signs Vital signs: Vital Signs Temperature 96.9 F L 11/01/19 16:46 Pulse Rate 69 11/01/19 16:46 Respiratory Rate 16 11/01/19 16:46 Blood Pressure 104/68 11/01/19 16:46 Pulse Oximetry (%) 98 11/01/19 16:46 Temperature 96.9 F L 11/01/19 16:46 Pulse Rate 71 11/01/19 20:09 Respiratory Rate 16 11/01/19 16:46 Blood Pressure 119/67 11/01/19 20:09 Pulse Oximetry (%) 92 11/01/19 20:09 [facility] Narrative Medical decision making narrative: 7:00 PM approximately - patient here with dizziness, several days of vomiting and diarrhea, weakness, believes he is in renal failure and has a history of acute renal failure. Also, chronic alcoholic who has not even been able to drink. We will do multiple labs. Labs came back with severe hyponatremia at 113 and this was called here. Chloride 71, white count 5.2. H&H 11.9/33.4 with platelets 133. Anion gap was 20. BUN 33, creatinine 3.2. Liver function test 73 and 87 4 transaminases. Alcohol level was negative. 7:42 PM - spoke with Dr. Duong, he recommends no further IV hydration until we repeat his sodium. He is received 1 L NS at this point. He agrees with measuring BMP with a lactic acid. We will also order C. difficile stool test. Patient reports some jumpy legs as if the lorazepam made him a little bit worse. 8:10 PM approximately - I spoke with Dr. Koehler, hospitalist, who agrees with admission and to let him know what the repeat sodium is. Lab Data Result diagrams: 11/01/19 17:34 11/01/19 17:34 Labs: Lab Results 11/01/19 11/01/19 11/01/19 Range/Units 17:34 17:34 17:34 WBC 5.2 (4.50-11.00) K/mcL RBC 3.71 L (4.63-6.08) M/mcL Hgb 11.9 L (13.7-17.5) g/dL Hct 33.4 L (40.1-51.0) % MCV 90.0 (80.0-100.0) fL MCH 32.1 (26.0-34.0) pg MCHC 35.6 (31.0-36.0) g/dL RDW 15.2 H (11.5-14.5) % Plt Count 133 L (140-440) K/mcL MPV 10.2 (7.4-10.4) fL Total Counted 100 Seg Neutrophils % 53 (38-78) % Band Neutrophils % 2 (0-10) % Lymphocytes % 30 (15-49) % Monocytes % (Manual) 15 H (1-12) % Platelet Estimate Decreased A (NORMAL) RBC Morphology Normal (NORMAL) Sodium 113 L* (133-145) mmol/L Potassium 3.3 (3.3-5.1) mmol/L Chloride 71 L (96-108) mmol/L Carbon Dioxide 22 (22-30) mmol/L Anion Gap 20.0 H (8-16) BUN 33 H (6-20) mg/dl Creatinine 3.2 H (0.7-1.2) mg/dl GFR Calculation 21 Glucose 100 (70-105) mg/dL Calcium 9.4 (8.6-10.4) mg/dl Total Bilirubin 0.6 (0.0-1.0) mg/dL AST 73 H (0-37) U/l ALT 57 H (0-40) U/l Alkaline Phosphatase 67 (39-117) U/L Total Protein 7.5 (5.9-8.4) gm/dL Albumin 4.2 (3.2-5.2) gm/dL Globulin 3.3 (2.2-3.7) gm/dL Albumin/Globulin Ratio 1.3 (1.0-2.3) Ethyl Alcohol < 0.010 (<0.010) gm/dl Discharge Plan Patient/Caregiver Discharge Instructions Pt seen by TARE MAN/PA only: No Clinical Impression: Acute hyponatremia, Acute renal failure (ARF), Acute dehydration, Nausea and vomiting, Diarrhea Prescriptions: No Action mirtazapine [Remeron] 15 mg tablet 7.5 mg PO QHS Qty: 30 RF: 0 cholecalciferol (vitamin D3) 50 mcg (2,000 unit) capsule 50 mcg PO QDAY Qty: 90 RF: 0 naltrexone 50 mg tablet 50 mg PO QDAY RF: 0 albuterol sulfate [ProAir HFA] 90 mcg/actuation HFA aerosol inhaler 2 puff inhalation .q4-6h PRN (Reason: cough, shortness of breath, wheezing) Qty: 8.5 RF: 0 allopurinol 300 MG tablet 300 mg PO DAILY RF: 0 hydrochlorothiazide 25 MG tablet 25 mg PO DAILY RF: 0 losartan 100 MG tablet 100 mg PO DAILY RF: 0 metoprolol tartrate 25 MG tablet 25 mg PO BID RF: 0 amlodipine 10 MG tablet 10 mg PO DAILY RF: 0 Follow up with: Vishnu Rankin ARNP [Primary Care Provider] - Patient Disposition: Xfer As Inpt ([facility])
[2019-11-01] MEDS ORDERED: 0.9 % SODIUM CHLORIDE 1,000 ML IV ONE (18:38)
[2019-11-01 18:44] LABS: Band Neutrophils % 2 % (0-10); Chloride 71 mmol/L (96-108); Lymphocytes % 30 % (15-49); Monocytes % (Manual) 15 % (1-12); Platelet Estimate DECREASED (NORMAL); RBC Morphology NORMAL (NORMAL); Segmented Neutrophils % 53 % (38-78)
[2019-11-01 19:02] LABS: Alcohol, Blood < 10.0 mg/dL (<10); Alcohol,Blood < 0.010 gm/dl (<0.010)
[2019-11-01] MEDS ORDERED: THIAMINE 100 MG TABLET PO SCH (19:53)
--- NOTE | 2019-11-01 20:30 | Nephrology Consult Note ---
HPI Data of Consult Patient: known to practice within the last 3 years Consult date: 11/01/19 Primary Care Provider: DEJON Harris Consult Narrative Patient Information: Note initiated : 11/01/19 at 8:17 pm Patient: Zak Aburto 48 y/o M admitted on for weakness. Chief complaint: Weakness Reason for consult: Acute kidney injury and hyponatremia cc:: Zak Aburto is a 48-year-old male with a history of hypertension and history of polysubstance abuse, presented to ED on 11/01/19 for weakness. He has weakness, muscle cramping, lightheadedness, dizziness, nausea, vomiting, diarrhea and unable to eat or drink for several days. He sees Dr. Hoyos for alcoholism. He had alcohol withdrawal in the past but no DTs. No history of seizures. In ED work up was significant for acute kidney injury with severe hyponatremia and high anion gap. He received 1 L NS. Constitutional Constitutional: Present fatigue and weakness EENT Eyes: Absent change in vision Nose, mouth and throat: Absent nasal congestion and sore throat Cardiovascular Cardiovascular: Absent chest pain and palpatations Respiratory Respiratory: Absent cough Gastrointestinal Gastrointestinal: Present diarrhea, nausea and vomiting Genitourinary Additional comments: decreased urine output Musculoskeletal Musculoskeletal: Absent joint swelling Integumentary Integumentary: Absent rash Neurological Neurological: Absent confusion Psychiatric Psychiatric: Absent anxiety Endocrine Endocrine: Absent cold intolerance and heat intolerance Hematologic/Lymphatic Hematologic/Lymphatic: Absent easy bleeding Allergic/Immunologic Allergic/Immunologic: Absent tongue swelling and uticaria [facility] Medical History Acute renal failure (Chronic) Anxiety (Chronic) Confusion (Chronic) Dehydration (Chronic) Hypertension (Chronic) diagnosed in [facility] Myocardial infarction (Chronic ~2018) Polysubstance abuse (Chronic) Surgical History No pertinent past surgical history (Chronic) Family History Grandfather HTN (hypertension) Myocardial infarct Other No pertinent family history Social History marital status: single smoking status: Former smoker alcohol intake frequency: a few times a month substance use type: former substance user, marijuana, amphetamines and other MEDS/ALLERGIES Home Medications and Allergies Home Medications Medication Instructions Recorded Confirmed Type allopurinol 300 mg PO DAILY 05/15/19 10/26/19 History amlodipine 10 mg PO DAILY 05/15/19 10/26/19 History hydrochlorothiazide 25 mg PO DAILY 05/15/19 10/26/19 History losartan 100 mg PO DAILY 05/15/19 10/26/19 History metoprolol tartrate 25 mg PO BID 05/15/19 10/26/19 History naltrexone 50 mg tablet 50 mg PO QDAY tab 09/16/19 10/26/19 History cholecalciferol (vitamin D3) 50 50 mcg PO QDAY #90 cap 10/04/19 10/26/19 Rx mcg (2,000 unit) capsule mirtazapine 15 mg tablet 7.5 mg PO QHS #30 tab 10/17/19 10/26/19 Rx albuterol sulfate 90 mcg/actuation 2 puff INHALATION .q4-6h PRN #8.5 g 10/26/19 10/26/19 Rx aerosol inhaler Allergies Allergy/AdvReac Type Severity Reaction Status Date / Time No Known Drug Allergies Allergy Verified 11/01/19 16:48 Physical Examination Vital Signs Vital signs: Temp Pulse Resp BP Pulse Ox 96.9 F L 71 16 119/67 92 11/01/19 16:46 11/01/19 20:09 11/01/19 16:46 11/01/19 20:09 11/01/19 20:09 General Appearance General appearance: appears started age EENT EENT: mucous membranes dry Respiratory Respiratory: clear Cardiovascular Cardiology: no edema Gastrointestinal Gastrointestinal: no tenderness Integumentary Integumentary: warm and dry Neurologic Neurologic: no focal deficit and alert and oriented x3 Musculoskeletal Musculoskeletal: no erythema Psychiatric Psychiatric: mood/affect appropriate and cooperative Results Lab Results Result Diagrams: 11/01/19 17:34 11/01/19 17:34 Lab results: Most recent lab results Calcium 9.4 mg/dl (8.6-10.4) 11/01/19 17:34 A/P Assessment and plan (1) Acute renal failure: Assessment and plan: Acute kidney injury with severe hyponatremia and high anion gap, present on arrival. Status: Acute Qualifiers: Acute renal failure type: unspecified Qualified Code(s): N17.9 - Acute kidney failure, unspecified (2) Hyponatremia with decreased serum osmolality: Assessment and plan: Hyponatremia, hypoosmolar, hypovolemic, severe (<120), chronic (>48 hours), likely asymptomatic (no confusion, headache, deliri um, or seizures), present on arrival. Recent work up: MRI Abdomen on 10/01/19: Both kidneys are normal and symmetric in size, position, configuration and signal intensity within the right is 10.8 x 1.7 cm and the left is 10 x 5 cm. There is no mass identified in the inferior pole of the right kidney. Ultrasound findings should be considered artifact. There is a 8 mm simple cyst in the mid left kidney. Recommendations/Plan: No urgent acute hemodialysis need. Repeat BMP before further IVF. BMP every 4 hours until serum sodium >120. Target serum sodium elevation: <4-6 mEq/L/24 hours. Goal serum sodium of >130 mEq/L. Avoid NSAIDs, nephrotoxic medications and IV contrast. Status: Acute Time Spent With Patient Time: Total time spent is greater than 50% in coordination of care (as documented) at patient's floor/unit and/or counseling patient:
--- NOTE | 2019-11-01 21:43 | Internal Med History&Physical ---
HPI History of Present Illness Patient information: Note initiated : 11/01/19 at 9:33 pm Service Date, if different from initiated Date: [] Patient: Zak Aburto a 48 y/o M admitted on for weakness. Chief Complaint: [] History of present illness: Mr. Aburto is a 48 year old M Presents the ED with generalized weakness nausea vomiting diarrhea crampy muscles and achiness all for several weeks. He sees nephrology for chronic kidney disease and Dr. Eller asked for substance abuse alcohol. Work-up in the ED was notable for acute kidney injury with a creatinine 3.2 with a low chloride. His sodium was significantly low 113. Patient denies any seizure history. No chest pain and no new shortness of breath. Reports chronic shortness of breath for months. Case was assessed with Dr. Duong in the ED. Patient received 1 L of normal saline with further fluid management per Dr. Duong. Patient reports she drinks alcohol daily. Quit smoking 4 months ago. Review of Systems: Positives as above. Denies headache/fever/chills/chest or abdominal pain/cough/. Remaining 10 point review of system reviewed negative [facility] Medical History (Updated 11/01/19 @ 20:49 by Fernando Lawrence DO) Acute renal failure (Acute) Anxiety (Chronic) Confusion (Chronic) Dehydration (Chronic) Hypertension (Chronic) diagnosed in [facility] Hyponatremia with decreased serum osmolality (Acute) Myocardial infarction (Chronic ~2018) Polysubstance abuse (Chronic) Surgical History No pertinent past surgical history (Chronic) Family History Grandfather HTN (hypertension) Myocardial infarct Other No pertinent family history Social History (Updated 11/01/19 @ 21:36 by Javan Koehler DO) marital status: single smoking status: Former smoker alcohol intake frequency: a few times a month substance use type: former substance user, marijuana, amphetamines and other additional history: Patient reports marijuana 3 weeks ago. Last used meth was last May. Reports he can drink a couple wine coolers today to up to three quarters of a bottle of vodka. MEDS/ALLERGIES Home Medications and Allergies Home Medications Medication Instructions Recorded Confirmed Type allopurinol 300 mg PO DAILY 05/15/19 11/01/19 History amlodipine 10 mg PO DAILY 05/15/19 11/01/19 History hydrochlorothiazide 25 mg PO DAILY 05/15/19 11/01/19 History losartan 100 mg PO DAILY 05/15/19 11/01/19 History metoprolol tartrate 25 mg PO BID 05/15/19 11/01/19 History naltrexone 50 mg tablet 50 mg PO QDAY tab 09/16/19 11/01/19 History cholecalciferol (vitamin D3) 50 50 mcg PO QDAY #90 cap 10/04/19 11/01/19 Rx mcg (2,000 unit) capsule mirtazapine 15 mg tablet 7.5 mg PO QHS #30 tab 10/17/19 11/01/19 Rx albuterol sulfate 90 mcg/actuation 2 puff INHALATION .q4-6h PRN #8.5 g 10/26/19 11/01/19 Rx aerosol inhaler Allergies Allergy/AdvReac Type Severity Reaction Status Date / Time No Known Drug Allergies Allergy Verified 11/01/19 16:48 EXAM Constitutional Vitals: Temp Pulse Resp BP Pulse Ox 96.9 F L 58 L 16 114/69 100 11/01/19 16:46 11/01/19 21:09 11/01/19 16:46 11/01/19 21:09 11/01/19 21:09 Exam: General: Alert, Awake, No acute Distress Eyes/N/T: EOMI, PERRL, dryMM Head/Neck: neck supple, normocephalic atraumatic CV: RRR, No murmurs, normal s1/s2 Pulm: Clear b/l, no wheezing/rhonchi/rales Abd: soft, nontender, +BS x4 Ext: no clubbing/cyanosis/edema Neuro: Alert, no focal deficits, moves all extremities, CN 2-12 grossly intact, symmetrical strength b/l upper/lower, sensations intact b/l upper/lower Skin: warm/dry DATA Data Completed and Pending Labs on day of discharge: Labs from last 24 hours 11/01/19 11/01/19 11/01/19 21:05 17:34 17:34 WBC RBC Hgb Hct MCV MCH MCHC RDW Plt Count MPV Total Counted Seg Neutrophils % Band Neutrophils % Lymphocytes % Monocytes % (Manual) Platelet Estimate RBC Morphology VBG Lactic Acid 1.1 Sodium Pending Potassium Pending Chloride Pending Carbon Dioxide Pending Anion Gap Pending BUN Pending Creatinine Pending GFR Calculation Pending Glucose Pending Calcium Pending Total Bilirubin AST ALT Alkaline Phosphatase Total Protein Albumin Globulin Albumin/Globulin Ratio Ethyl Alcohol < 0.010 11/01/19 11/01/19 17:34 17:34 WBC 5.2 RBC 3.71 L Hgb 11.9 L Hct 33.4 L MCV 90.0 MCH 32.1 MCHC 35.6 RDW 15.2 H Plt Count 133 L MPV 10.2 Total Counted 100 Seg Neutrophils % 53 Band Neutrophils % 2 Lymphocytes % 30 Monocytes % (Manual) 15 H Platelet Estimate Decreased A RBC Morphology Normal VBG Lactic Acid Sodium 113 L* Potassium 3.3 Chloride 71 L Carbon Dioxide 22 Anion Gap 20.0 H BUN 33 H Creatinine 3.2 H GFR Calculation 21 Glucose 100 Calcium 9.4 Total Bilirubin 0.6 AST 73 H ALT 57 H Alkaline Phosphatase 67 Total Protein 7.5 Albumin 4.2 Globulin 3.3 Albumin/Globulin Ratio 1.3 Ethyl Alcohol A/P Assessment and plan (1) Acute renal failure: Status: Acute Qualifiers: Acute renal failure type: unspecified Qualified Code(s): N17.9 - Acute kidney failure, unspecified (2) Hyponatremia with decreased serum osmolality: Status: Acute Narrative A/P Narrative: A: *DYANA on CKDII: 2/ n/v/d -Follows with Dr. Acosta outpatient *N/V/D: ?gastroenteritis vs etoh + meds (?naltrexone) *Hyponatremia/chloridemia: beer potomania + HCTZ + and volume loss *Volume depletion: *Alcohol abuse: Follows with Dr. Hoyos outpatient *History of substance abuse: No meth since May *HTN: *Schizophrenia: *Anxiety: * P: -IVF and sodium mgmt per Nephrology -CIWA, prn benzo, vitamins -stool cx, c.diff -UDS -Dr. Duong following -cont francisco j norvasc, hold ARB/HCTZ - -ppx: heparin full code Time Spent With Patient Time: Total time spent is greater than 50% in coordination of care (as documented) at patient's floor/unit and/or counseling patient:
[2019-11-01 22:19] LABS: Blood Urea Nitrogen 36 mg/dl (6-20); Calcium 8.3 mg/dl (8.6-10.4); Carbon Dioxide 23 mmol/L (22-30); Glomerular Filtration Rate 21; Glucose 84 mg/dL (70-105)
[2019-11-01 22:27] LABS: Chloride 74 mmol/L (96-108)
[2019-11-01] MEDS ORDERED: LORazepam 2 MG/ML VIAL IV PRN (22:41)
[2019-11-01] MEDS ORDERED: ONDANSETRON 4 MG/2 ML VIAL IV PRN (22:41)
[2019-11-01] MEDS ORDERED: LABETALOL 5 MG/ML ML IV PRN (22:41)
[2019-11-01] MEDS ORDERED: SENNOSIDES 1 TABLET PO PRN (22:41)
[2019-11-01] MEDS ORDERED: chlordiazePOXIDE 25 MG CAPSULE PO PRN (22:41)
[2019-11-01] MEDS ORDERED: cloNIDine HCL 0.1 MG TABLET PO PRN (22:41)
[2019-11-01] MEDS ORDERED: 0.45 % SODIUM CHLORIDE 1,000 ML IV SCH (22:45)
[2019-11-01] MEDS: 0.9 % SODIUM CHLORIDE 10 ML SYRINGE IV SCH (22:54)
[2019-11-01] MEDS ORDERED: chlordiazePOXIDE 25 MG CAPSULE PO ONE (22:55)
[2019-11-02 00:01] LABS: Basophils # (Auto) 0.02 K/mcL (0.00-0.30); Basophils % (Auto) 0.5 % (0.0-2.0); Eosinophils # (Auto) 0.04 K/mcL (0.00-0.70); Eosinophils % (Auto) 0.9 % (0.0-7.0); Granulocytes % (Auto) 51.9 % (38.0-78.0); Hemoglobin 11.2 g/dL (13.7-17.5); Lymphocytes # (Auto) 1.35 K/mcL (1.50-4.80); Lymphocytes % (Auto) 31.2 % (15.5-49.0); Mean Cell Volume 91.4 fL (80.0-100.0); Mean Corpuscular HGB Conc 36.1 g/dL (31.0-36.0); Mean Platelet Volume 10.3 fL (7.4-10.4); Monocytes # (Auto) 0.67 K/mcL (0.10-0.90); Monocytes % (Auto) 15.5 % (1.0-12.0); RBC 3.39 M/mcL (4.63-6.08); WBC 4.3 K/mcL (4.50-11.00)
[2019-11-02 00:07] LABS: Platelet Count 109 K/mcL (140-440)
[2019-11-02 00:12] LABS: Prothrombin Time 13.1 sec (11.9-14.5)
[2019-11-02 00:18] LABS: ALT/SGPT 49 U/l (0-40); AST/SGOT 62 U/l (0-37); Albumin 3.8 gm/dL (3.2-5.2); Albumin/Globulin Ratio 1.4 (1.0-2.3); Alkaline Phosphatase 59 U/L (39-117); Bilirubin,Direct 0.2 mg/dL (0.0-0.3); Bilirubin,Total 0.6 mg/dL (0.0-1.0); Blood Urea Nitrogen 35 mg/dl (6-20); Calcium 8.5 mg/dl (8.6-10.4); Carbon Dioxide 24 mmol/L (22-30); Globulin 2.8 gm/dL (2.2-3.7); Glomerular Filtration Rate 19; Glucose 87 mg/dL (70-105); Lactate Dehydrogenase 192 U/L (94-250); Phosphorous 4.9 mg/dL (2.7-4.5); Triglycerides 59 mg/dl (<150); Uric Acid 15.1 mg/dL (2.5-8.0)
[2019-11-02 00:22] LABS: Chloride 75 mmol/L (96-108)
[2019-11-02 01:49] LABS: Appearance,Urine HAZY; Bacteria,Urine 0 /hpf (0); Bilirubin,Urine NEG (NEG); Color,Urine YELLOW; Culture Indicated,Urine NO; Glucose,Urine (UA) NEGATIVE (NEG); Ketones,Urine NEG (NEG); Leukocyte Esterase,Urine NEG /uL (NEG); Nitrate,Urine NEG (NEG); Protein,Urine 30 mg/dL (NEG); Specific Gravity,Urine 1.004 (1.000-1.035); Urine Blood 0.2 mg/dL (<0.03); Urine RBC 1 /hpf (0-1); Urine Squamous Epithelial Cell < 1 /hpf (0-4); Urine WBC 1 /hpf (0-4); Urobilinogen,Urine NEG (NEG)
[2019-11-02 01:55] LABS: Amphetamine Screen,Urine NONE DETECTED (NONDETECTED); Barbiturate Screen,Urine NONE DETECTED (NONDETECTED); Benzodiazepines Screen,Urine NONE DETECTED (NONDETECTED); Cannabinoid Screen,Urine SUSPECT POSITIVE (NONDETECTED); Cocaine Screen,Urine NONE DETECTED (NONDETECTED); Opiate Screen,Urine NONE DETECTED (NONDETECTED); Oxycodone, Urine Screen NONE DETECTED (NONDETECTED); Phencyclidine Screen,Urine NONE DETECTED (NONDETECTED)
[2019-11-02] MEDS: 0.9 % SODIUM CHLORIDE 10 ML SYRINGE IV SCH ×3 (05:05→20:35)
--- NOTE | 2019-11-02 06:53 | Nephrology Progress Note ---
SUBJECTIVE Subjective Patient information: Note initiated : 11/02/19 at 6:49 am Patient: aZk Aburto 48 y/o M admitted on 11/01/19 for weakness. He has history of hypertension and history of polysubstance abuse, presented to ED on 11/01/19 for weakness. He reported weakness, muscle cramping, lightheadedness, dizziness, nausea, vomiting, diarrhea and unable to eat or drink for several days. He sees Dr. Hoyos for alcoholism. He had alcohol withdrawal in the past but no DTs. No history of seizures. In ED work up was significant for acute kidney injury with severe hyponatremia and high anion gap. He received 1 L NS. Chief Complaint: Weakness Pertinent ROS: Diarrhea Weakness No confusion Good urine output Constitutional Vitals: Vital Signs Temp Pulse Resp BP Pulse Ox 98.6 F 56 L 22 102/66 97 11/02/19 04:01 11/02/19 05:03 11/02/19 06:31 11/02/19 06:02 11/02/19 05:03 Period Temp Pulse Resp BP Sys/[place] Pulse Ox Last 24 Hr 96.9 F-98.6 F 46-100 9-26 70-125/47-82 92-100 Intake and Output 11/01/19 11/02/19 11/02/19 21:59 05:59 13:59 Intake Total 1000 600 Output Total 675 Balance 1000 -75 Weight 200 lb 201 lb 3 oz Intake & Output: Intake & Output 11/01/19 11/02/19 11/02/19 21:59 05:59 13:59 Intake Total 1000 600 Output Total 675 Balance 1000 -75 Weight 200 lb 201 lb 3 oz Intake: IV 1000 Sodium Chloride 0.9% 1,000 ml @ 1000 Wide Open IV BOLUS ONE Rx#: [id number] Oral 600 Output: Void Amount 675 Other: Urine Appearance Clear Urine Color Dark Yellow Urine Odor Normal Stool Size Moderate Stool Color Brown Stool Consistency Soft Formed # Bowel Movements 1 # Emeses 2 General appearance: cooperative and no acute distress Head Head exam: Present normal inspection Respiratory Respiratory exam: Absent respiratory distress Cardiovascular Cardiovascular exam: Present RRR GI/Abdominal GI/Abdominal exam: Present soft; Absent distended and tenderness Extremities Exam Extremities exam: Present normal inspection; Absent pedal edema Neurological Exam Neurological exam: Present alert and oriented X3 Psychiatric Psychiatric exam: Present normal affect and normal mood; Absent anxious Skin Skin exam: Present normal color and warm A/P Assessment and plan (1) Acute renal failure: Assessment and plan: Acute kidney injury with severe hyponatremia and high anion gap, present on arrival. Work up: MRI Abdomen on 10/01/19: Both kidneys are normal and symmetric in size, position, configuration and signal intensity within the right is 10.8 x 1.7 cm and the left is 10 x 5 cm. There is no mass identified in the inferior pole of the right kidney. Ultrasound findings should be considered artifact. There is a 8 mm simple cyst in the mid left kidney. Urinalysis on 11/02/19: Yellow, hazy, pH 5.0, SG 1.004, protein 30, blood 0.2, leukocyte esterase negative. Progress: Serum creatinine increased from 3.2 to 3.4 in the past 11 hours. Recommendations/Plan: NS at 60 ml/hour. Anticipate no acute hemodialysis need. Avoid NSAIDs, nephrotoxic medications and IV contrast. Status: Acute Qualifiers: Acute renal failure type: unspecified Qualified Code(s): N17.9 - Acute kidney failure, unspecified (2) Hyponatremia with decreased serum osmolality: Assessment and plan: Hyponatremia, hypoosmolar, hypovolemic, severe (<120), chronic (>48 hours), likely asymptomatic (no confusion, headache, delirium, or seizures), present on arrival. Treatment: NS 1 L bolus in ED followed by 1/2 NS at 100 ml/hr. Regular diet. Progress: Serum sodium increased from 113 to 114 in the past 11 hours. Hypokalemia. Recommendations/Plan: Change 1/2 NS to NS at 60 ml/hour. Continue regular diet. BMP every 4 hours until serum sodium >120. Target serum sodium elevation: <4-6 mEq/L/24 hours. Goal serum sodium of >130 mEq/L. Status: Acute (3) Hypokalemia: Assessment and plan: Hypokalemia associated with diarrhea. Recommendations/Plan: Continue regular diet. Potassium Chloride 40 mEq PO BID. Magnesium Oxide 400 mg PO daily. Status: Acute Time Spent With Patient Time: Total time spent is greater than 50% in coordination of care (as documented) at patient's floor/unit and/or counseling patient:
[2019-11-02 06:56] LABS: Basophils # (Auto) 0.02 K/mcL (0.00-0.30); Basophils % (Auto) 0.5 % (0.0-2.0); Eosinophils # (Auto) 0.05 K/mcL (0.00-0.70); Eosinophils % (Auto) 1.3 % (0.0-7.0); Granulocytes % (Auto) 41.5 % (38.0-78.0); Hematocrit 29.9 % (40.1-51.0); Hemoglobin 10.9 g/dL (13.7-17.5); Lymphocytes # (Auto) 1.43 K/mcL (1.50-4.80); Lymphocytes % (Auto) 38.4 % (15.5-49.0); Mean Cell Volume 90.9 fL (80.0-100.0); Mean Corpuscular HGB Conc 36.5 g/dL (31.0-36.0); Monocytes # (Auto) 0.68 K/mcL (0.10-0.90); Monocytes % (Auto) 18.3 % (1.0-12.0); RBC 3.29 M/mcL (4.63-6.08); Red Cell Distribution Width 14.7 % (11.5-14.5); WBC 3.7 K/mcL (4.50-11.00)
[2019-11-02 06:59] LABS: Platelet Count 109 K/mcL (140-440)
[2019-11-02 07:41] LABS: ALT/SGPT 43 U/l (0-40); AST/SGOT 55 U/l (0-37); Albumin 3.6 gm/dL (3.2-5.2); Albumin/Globulin Ratio 1.4 (1.0-2.3); Alkaline Phosphatase 57 U/L (39-117); Bilirubin,Direct 0.2 mg/dL (0.0-0.3); Bilirubin,Total 0.6 mg/dL (0.0-1.0); Blood Urea Nitrogen 34 mg/dl (6-20); Calcium 8.1 mg/dl (8.6-10.4); Carbon Dioxide 22 mmol/L (22-30); Chloride 76 mmol/L (96-108); Globulin 2.5 gm/dL (2.2-3.7); Glomerular Filtration Rate 20; Glucose 83 mg/dL (70-105); Lactate Dehydrogenase 186 U/L (94-250); Phosphorous 4.4 mg/dL (2.7-4.5); Triglycerides 85 mg/dl (<150); Uric Acid 14.8 mg/dL (2.5-8.0)
--- NOTE | 2019-11-02 07:57 | Internal Med Progress Note ---
SUBJECTIVE Subjective Patient information: Note initiated : 11/02/19 at 7:52 am Service Date, if different from initiated Date: [] Patient: Zak Aburto a 48 y/o M admitted on 11/01/19 for weakness. Chief Complaint: [] History of present illness: Mr. Aburto is a 48 year old M Presents the ED with generalized weakness nausea vomiting diarrhea crampy muscles and achiness all for several weeks. He sees nephrology for chronic kidney disease and Dr. Eller asked for substance abuse alcohol. Work-up in the ED was notable for acute kidney injury with a creatinine 3.2 with a low chloride. His sodium was significantly low 113. Patient denies any seizure history. No chest pain and no new shortness of breath. Reports chronic shortness of breath for months. Case was assessed with Dr. Duong in the ED. Patient received 1 L of normal saline with further fluid management per Dr. Duong. Patient reports she drinks alcohol daily. Quit smoking 4 months ago. 11/01 Poor sleep last night and has had poor sleep for the past week. Overall feeling a little bit better. Has urine output. Had a little bit of nausea with breakfast. No vomiting. Had C. difficile checked which was negative. Renal function no improvement yet. Review of Systems: denies headache/fever/chills/vomiting/chest or abdominal pain/cough/dyspnea. Otherwise see above. Constitutional Vitals: Vital Signs Temp Pulse Resp BP Pulse Ox 98.6 F 56 L 22 102/66 97 11/02/19 04:01 11/02/19 05:03 11/02/19 06:31 11/02/19 06:02 11/02/19 05:03 Period Temp Pulse Resp BP Sys/Tarango Pulse Ox Last 24 Hr 96.9 F-98.6 F 46-100 9-26 70-125/47-82 92-100 Intake and Output 11/01/19 11/02/19 11/02/19 21:59 05:59 13:59 Intake Total 1000 600 Output Total 675 Balance 1000 -75 Weight 90.718 kg 91.257 kg Intake & Output: Intake & Output 11/01/19 11/02/19 11/02/19 21:59 05:59 13:59 Intake Total 1000 600 Output Total 675 Balance 1000 -75 Weight 90.718 kg 91.257 kg Intake: IV 1000 Sodium Chloride 0.9% 1,000 ml @ 1000 Wide Open IV BOLUS ONE Rx#: [id number] Oral 600 Output: Void Amount 675 Other: Urine Appearance Clear Urine Color Dark Yellow Urine Odor Normal Stool Size Moderate Stool Color Brown Stool Consistency Soft Formed # Bowel Movements 1 # Emeses 2 Exam: Exam: General: Alert, Awake, No acute Distress Eyes/N/T: EOMI, Head/Neck: neck supple, normocephalic atraumatic CV: RRR, No murmurs, normal s1/s2 Pulm: Clear b/l, no wheezing/rhonchi/rales Abd: soft, nontender, +BS x4 Ext: no clubbing/cyanosis/edema Neuro: Alert, no focal deficits, moves all extremities, Skin: warm/dry OBJ DATA Labs CBC & Chem 7: 11/02/19 04:52 11/02/19 04:52 Labs: Abnormal Lab Results 11/02/19 11/02/19 11/02/19 04:52 04:52 00:50 WBC 3.7 L RBC 3.29 L Hgb 10.9 L Hct 29.9 L MCHC 36.5 H RDW 14.7 H Plt Count 109 L [place] % (Auto) 18.3 H Gran # 1.54 L Lymph # (Auto) 1.43 L Monocytes % (Manual) Platelet Estimate Sodium 114 L* Potassium 2.9 L* Chloride 76 L Anion Gap BUN 34 H Creatinine 3.4 H Uric Acid 14.8 H Calcium 8.1 L Phosphorus Magnesium GGT 375 H AST 55 H ALT 43 H Urine Protein 30 A Urine Occult Blood 0.2 A U Marijuana (THC) Screen 11/02/19 11/01/19 11/01/19 00:50 23:13 23:12 WBC 4.3 L RBC 3.39 L Hgb 11.2 L Hct 31.0 L MCHC 36.1 H RDW 15.0 H Plt Count 109 L [place] % (Auto) 15.5 H Gran # Lymph # (Auto) 1.35 L Monocytes % (Manual) Platelet Estimate Sodium 114 L* Potassium 3.1 L Chloride 75 L Anion Gap BUN 35 H Creatinine 3.5 H Uric Acid 15.1 H Calcium 8.5 L Phosphorus 4.9 H Magnesium 1.5 L GGT 419 H AST 62 H ALT 49 H Urine Protein Urine Occult Blood U Marijuana (THC) Screen Suspect positive A 11/01/19 11/01/19 11/01/19 21:05 17:34 17:34 WBC RBC 3.71 L Hgb 11.9 L Hct 33.4 L MCHC RDW 15.2 H Plt Count 133 L [place] % (Auto) Gran # Lymph # (Auto) Monocytes % (Manual) 15 H Platelet Estimate Decreased A Sodium 112 L* 113 L* Potassium Chloride 74 L 71 L Anion Gap 20.0 H BUN 36 H 33 H Creatinine 3.2 H 3.2 H Uric Acid Calcium 8.3 L Phosphorus Magnesium GGT AST 73 H ALT 57 H Urine Protein Urine Occult Blood U Marijuana (THC) Screen Meds: Medications Allopurinol (Zylopriim) 300 mg PO DAILY [facility] Amlodipine Besylate (Norvasc) 10 mg PO DAILY [facility] Chlordiazepoxide HCl (Librium) 25 mg PO Q4HP PRN PRN Reason: Alcohol Withdrawal Last Admin: 11/01/19 22:53 Dose: 25 mg Documented by: Clonidine HCl (Catapres) 0.1 mg PO Q4HP PRN PRN Reason: ALC Folic Acid (Folic Acid) 1 mg PO DAILY [facility] Heparin Sodium (Porcine) (Heparin) 5,000 unit SQ Q12 [facility] Sodium Chloride (Sodium Chloride 0.9%) 1,000 mls @ 60 mls/hr IV .[id number] [facility] Iron Carb/Multivit/High Lighter/Folic Acid (Multivitamin W/Minerals) 1 tab PO DAILY [facility] Labetalol HCl (Trandate) 0 mg IV Q2HP PRN PRN Reason: Hypertension Lorazepam (Ativan) 0 mg IV Q4HP PRN; Protocol PRN Reason: Alcohol Withdrawal Magnesium Oxide (Magnesium Oxide) 400 mg PO DAILY [facility] Melatonin (Melatonin 3mg Tablet) 3 mg PO HS [facility] Metoprolol Tartrate (Lopressor) 25 mg PO BID [facility] Mirtazapine (Remeron) 7.5 mg PO HS [facility] Ondansetron HCl (Zofran) 4 mg IV Q4HP PRN PRN Reason: Nausea And Vomiting Potassium Chloride (Kdur) 40 meq PO BIDCC [facility] Senna (Senokot) 2 tab PO DAILYP PRN PRN Reason: Constipation Sodium Chloride (Saline Flush) 10 ml IV Q8 [facility] Last Admin: 11/02/19 05:05 Dose: Not Given Documented by: Thiamine HCl (Vitamin B1) 100 mg PO DAILY [facility] A/P Assessment and plan (1) Acute renal failure: Status: Acute Qualifiers: Acute renal failure type: unspecified Qualified Code(s): N17.9 - Acute kidney failure, unspecified (2) Hyponatremia with decreased serum osmolality: Status: Acute Narrative A/P Narrative: A: *DYANA on CKDII: 2/2 n/v/d vs -Follows with Dr. Acosta outpatient *N/V/D: ?gastroenteritis vs etoh + meds (?naltrexone) -c. diff neg, no fecal wbc *Hyponatremia/chloridemia/kalemia: beer potomania + HCTZ + and volume loss *Volume depletion: *Alcohol abuse: Follows with Dr. Hoyos outpatient *History of substance abuse: No meth since May -UDS no meth, +MJ *Thrombocytopenia: likely 2/2 etoh *HTN: *Schizophrenia: *Anxiety: *insomnia P: -IVF and sodium mgmt per Nephrology -CIWA, prn benzo, vitamins -imodium -Dr. Duong following -cont francisco j norvasc, hold ARB/HCTZ for DYANA and hyponatremia, will not cont hctz on d/c - -ppx: heparin full code Time Spent With Patient Time: Total time spent is greater than 50% in coordination of care (as documented) at patient's floor/unit and/or counseling patient: QUALITY VTE Deep Vein Thrombosis/Pulmonary Embolism Present on Admission: No
[2019-11-02] MEDS ORDERED: 0.9 % SODIUM CHLORIDE 1,000 ML IV SCH (08:00)
[2019-11-02] MEDS: POTASSIUM CHLORIDE 20 MEQ TABLET PO SCH ×2 (08:21→17:58)
[2019-11-02] MEDS ORDERED: THIAMINE 100 MG TABLET PO SCH (09:00)
[2019-11-02] MEDS ORDERED: ALLOPURINOL 300 MG TABLET PO SCH (09:00)
[2019-11-02] MEDS ORDERED: amLODIPine 10 MG TABLET PO SCH ×2 (09:00)
[2019-11-02] MEDS ORDERED: METOPROLOL TARTRATE 25 MG TABLET PO SCH (09:00)
[2019-11-02] MEDS ORDERED: LOPERAMIDE 2 MG CAPSULE PO PRN (09:38)
[2019-11-02] MEDS: FOLIC ACID 1 MG TABLET PO SCH (10:32)
[2019-11-02] MEDS: MULTIVIT,THER IRON,CA,FA & MIN 1 TABLET PO SCH (10:32)
[2019-11-02] MEDS: THIAMINE 100 MG TABLET PO SCH (10:32)
[2019-11-02] MEDS: ALLOPURINOL 300 MG TABLET PO SCH (10:32)
[2019-11-02] MEDS: MAGNESIUM OXIDE 400 MG TABLET PO SCH (10:32)
[2019-11-02] MEDS: METOPROLOL TARTRATE 25 MG TABLET PO SCH ×2 (10:33→20:44)
[2019-11-02] MEDS: HEPARIN 5,000 UNIT/ML VIAL SQ SCH ×2 (10:33→20:45)
[2019-11-02 12:05] LABS: Blood Urea Nitrogen 35 mg/dl (6-20); Calcium 8.3 mg/dl (8.6-10.4); Carbon Dioxide 21 mmol/L (22-30); Glucose 114 mg/dL (70-105)
[2019-11-02 12:17] LABS: Chloride 78 mmol/L (96-108); Glomerular Filtration Rate 26
[2019-11-02] MEDS ORDERED: SODIUM BICARBONATE VIAL 150 MEQ in WATER FOR INJECTION,STERILE 850 ML IV SCH (13:00)
[2019-11-02 17:39] LABS: Blood Urea Nitrogen 37 mg/dl (6-20); Calcium 8.6 mg/dl (8.6-10.4); Carbon Dioxide 24 mmol/L (22-30); Glomerular Filtration Rate 29; Glucose 104 mg/dL (70-105)
[2019-11-02 17:50] LABS: Chloride 82 mmol/L (96-108)
[2019-11-02] MEDS ORDERED: DEXTROSE 5% IN WATER 1,000 ML IV SCH (18:15)
[2019-11-02] MEDS ORDERED: MIRTAZAPINE 15 MG TABLET PO SCH ×2 (21:00)
[2019-11-02] MEDS ORDERED: diphenhydrAMINE 25 MG CAPSULE PO ONE (21:00)
[2019-11-02] MEDS ORDERED: MELATONIN 3 MG TABLET PO SCH ×2 (21:00)
[2019-11-02 23:38] LABS: Blood Urea Nitrogen 36 mg/dl (6-20); Calcium 8.8 mg/dl (8.6-10.4); Carbon Dioxide 23 mmol/L (22-30); Chloride 82 mmol/L (96-108); Glomerular Filtration Rate 34; Glucose 104 mg/dL (70-105)
[2019-11-03] MEDS ORDERED: DESMOPRESSIN ACETATE 1 MCG in 0.9 % SODIUM CHLORIDE 50 ML IV SCH (01:15)
[2019-11-03] MEDS: 0.9 % SODIUM CHLORIDE 10 ML SYRINGE IV SCH ×3 (05:44→21:16)
[2019-11-03 06:08] LABS: Basophils # (Auto) 0.02 K/mcL (0.00-0.30); Basophils % (Auto) 0.6 % (0.0-2.0); Eosinophils # (Auto) 0.03 K/mcL (0.00-0.70); Eosinophils % (Auto) 0.8 % (0.0-7.0); Granulocytes % (Auto) 40.5 % (38.0-78.0); Hematocrit 28.1 % (40.1-51.0); Hemoglobin 9.9 g/dL (13.7-17.5); Lymphocytes # (Auto) 1.68 K/mcL (1.50-4.80); Lymphocytes % (Auto) 46.9 % (15.5-49.0); Mean Cell Volume 92.7 fL (80.0-100.0); Mean Corpuscular HGB Conc 35.2 g/dL (31.0-36.0); Mean Platelet Volume 10.7 fL (7.4-10.4); Monocytes % (Auto) 11.2 % (1.0-12.0); RBC 3.03 M/mcL (4.63-6.08); Red Cell Distribution Width 15.3 % (11.5-14.5); WBC 3.6 K/mcL (4.50-11.00)
[2019-11-03 06:31] LABS: ALT/SGPT 40 U/l (0-40); AST/SGOT 50 U/l (0-37); Albumin 3.4 gm/dL (3.2-5.2); Albumin/Globulin Ratio 1.5 (1.0-2.3); Alkaline Phosphatase 55 U/L (39-117); Bilirubin,Total 0.3 mg/dL (0.0-1.0); Blood Urea Nitrogen 36 mg/dl (6-20); Calcium 8.5 mg/dl (8.6-10.4); Carbon Dioxide 24 mmol/L (22-30); Globulin 2.3 gm/dL (2.2-3.7); Glomerular Filtration Rate 43; Glucose 88 mg/dL (70-105); Lactate Dehydrogenase 165 U/L (94-250); Phosphorous 2.7 mg/dL (2.7-4.5); Triglycerides 85 mg/dl (<150)
[2019-11-03 06:36] LABS: Platelet Count 116 K/mcL (140-440)
[2019-11-03 06:46] LABS: Bilirubin,Direct < 0.2 mg/dL (0.0-0.3); Chloride 85 mmol/L (96-108); Uric Acid 10.7 mg/dL (2.5-8.0)
--- NOTE | 2019-11-03 07:08 | Nephrology Progress Note ---
SUBJECTIVE Subjective Patient information: Note initiated : 11/03/19 at 7:05 am Patient: Zak Aburto 48 y/o M admitted on 11/01/19 for weakness. Chief Complaint: Weakness Pertinent ROS: Urine output increased Weakness improved Feels better Constitutional Vitals: Vital Signs Temp Pulse Resp BP Pulse Ox 98.7 F 45 L 25 H 79/67 99 11/03/19 00:01 11/03/19 05:44 11/03/19 06:02 11/03/19 06:02 11/03/19 05:44 Period Temp Pulse Resp BP Sys/Tarango Pulse Ox Last 24 Hr 97.5 F-98.8 F 42-111 12-30 76-133/57-89 96-100 Intake and Output 11/02/19 11/03/19 11/03/19 21:59 05:59 13:59 Intake Total 1568 932.25 Output Total 1525 800 Balance 43 132.25 Weight 203 lb 2 oz Intake & Output: Intake & Output 11/02/19 11/03/19 11/03/19 21:59 05:59 13:59 Intake Total 1568 932.25 Output Total 1525 800 Balance 43 132.25 Weight 203 lb 2 oz Intake: IV 298 432.25 Ddavp 1 Mcg In Sodium Chloride 50.25 0.9% 50 ml @ 200 mls/hr IV Q6H [facility] Rx#:[id number] Dextrose 5% in Water 1,000 ml @ 382 50 mls/hr IV .Q20H QUI[facility] Rx#: [id number] Sodium Bicarbonate Vial 150 Meq 298 In Water 850 ml @ 50 mls/hr IV Q20H [facility] Rx#:[id number] Oral 1270 500 Output: Void Amount 1525 800 Other: Meal Dinner Percent of Meal Consumed 100% Urine Appearance Clear Clear Urine Color Light Luz Light Luz Urine Odor Strong Strong Stool Size Moderate Moderate Stool Color Brown Brown Stool Consistency Formed Formed Loose Loose # Bowel Movements 1 # Emeses 2 General appearance: no acute distress Head Head exam: Present normal inspection Respiratory Respiratory exam: Absent respiratory distress Cardiovascular Cardiovascular exam: Present RRR GI/Abdominal GI/Abdominal exam: Present soft Extremities Exam Extremities exam: Present normal inspection; Absent pedal edema Neurological Exam Neurological exam: Present alert and oriented X3 Psychiatric Psychiatric exam: Present normal affect and normal mood Skin Skin exam: Present normal color; Absent rash A/P Assessment and plan (1) Acute renal failure: Assessment and plan: Acute kidney injury with severe hyponatremia and high anion gap, present on arrival. Work up: MRI Abdomen on 10/01/19: Both kidneys are normal and symmetric in size, position, configuration and signal intensity within the right is 10.8 x 1.7 cm and the left is 10 x 5 cm. There is no mass identified in the inferior pole of the right kidney. Ultrasound findings should be considered artifact. There is a 8 mm simple cyst in the mid left kidney. Urinalysis on 11/02/19: Yellow, hazy, pH 5.0, SG 1.004, protein 30, blood 0.2, leukocyte esterase negative. Progress: Serum creatinine decreased from 3.4 to 1.8 in the past 24 hours. Recommendations/Plan: Anticipate no acute hemodialysis need. Avoid NSAIDs, nephrotoxic medications and IV contrast. Status: Acute Qualifiers: Acute renal failure type: unspecified Qualified Code(s): N17.9 - Acute kidney failure, unspecified (2) Hyponatremia with decreased serum osmolality: Assessment and plan: Hyponatremia, initially; hypoosmolar, hypovolemic, severe (<120), chronic (>48 hours), likely asymptomatic (no confusion, headache, delirium, or seizures), present on arrival. Progress: Serum sodium increased from 113 to 118 since presentation in the past 36 hours. Serum sodium decreased from 120 to 118 in the past 6 hours after DDAVP 1 mcg IV administration. Urine output: 4025 ml Recommendations/Plan: Hold DDAVP 1 mcg IV Q6H. Continue regular diet. Target serum sodium elevation: <4-6 mEq/L/24 hours. Goal serum sodium of >130 mEq/L. BMP Q6H today. Status: Acute Time Spent With Patient Time: Total time spent is greater than 50% in coordination of care (as documented) at patient's floor/unit and/or counseling patient:
--- NOTE | 2019-11-03 08:02 | Internal Med Progress Note ---
SUBJECTIVE Subjective Patient information: Note initiated : 11/03/19 at 7:55 am Service Date, if different from initiated Date: [] Patient: Zak Aburto a 48 y/o M admitted on 11/01/19 for weakness. Chief Complaint: [] Interval history: History of present illness: Mr. Aburto is a 48 year old M Presents the ED with generalized weakness nausea vomiting diarrhea crampy muscles and achiness all for several weeks. He sees nephrology for chronic kidney disease and Dr. Eller asked for substance abuse alcohol. Work-up in the ED was notable for acute kidney injury with a creatinine 3.2 with a low chloride. His sodium was significantly low 113. Patient denies any seizure history. No chest pain and no new shortness of breath. Reports chronic shortness of breath for months. Case was assessed with Dr. Duong in the ED. Patient received 1 L of normal saline with further fluid management per Dr. Duong. Patient reports she drinks alcohol daily. Quit smoking 4 months ago. 11/01 Poor sleep last night and has had poor sleep for the past week. Overall feeling a little bit better. Has urine output. Had a little bit of nausea with breakfast. No vomiting. Had C. difficile checked which was negative. Renal function no improvement yet. 11/02 Continues to feel gradually better. No new complaints. No nausea vomiting or diarrhea. Sodium coming up appropriately. Blood pressure little low and so decreased his blood pressure medications. Review of Systems: denies headache/fever/chills/vomiting/chest or abdominal pain/cough/dyspnea. Otherwise see above. Constitutional Vitals: Vital Signs Temp Pulse Resp BP Pulse Ox 98.7 F 45 L 25 H 79/67 99 11/03/19 00:01 11/03/19 05:44 11/03/19 06:02 11/03/19 06:02 11/03/19 05:44 Period Temp Pulse Resp BP Sys/Tarango Pulse Ox Last 24 Hr 97.5 F-98.8 F 42-111 12-30 76-133/57-89 96-100 Intake and Output 11/02/19 11/03/19 11/03/19 21:59 05:59 13:59 Intake Total 1568 932.25 Output Total 1525 800 Balance 43 132.25 Weight 92.136 kg Intake & Output: Intake & Output 11/02/19 11/03/19 11/03/19 21:59 05:59 13:59 Intake Total 1568 932.25 Output Total 1525 800 Balance 43 132.25 Weight 92.136 kg Intake: IV 298 432.25 Ddavp 1 Mcg In Sodium Chloride 50.25 0.9% 50 ml @ 200 mls/hr IV Q6H [facility] Rx#:[id number] Dextrose 5% in Water 1,000 ml @ 382 50 mls/hr IV .Q20H [facility] Rx#: [id number] Sodium Bicarbonate Vial 150 Meq 298 In Water 850 ml @ 50 mls/hr IV Q20H [facility] Rx#:[id number] Oral 1270 500 Output: Void Amount 1525 800 Other: Meal Dinner Percent of Meal Consumed 100% Urine Appearance Clear Clear Urine Color Light Luz Light Luz Urine Odor Strong Strong Stool Size Moderate Moderate Stool Color Brown Brown Stool Consistency Formed Formed Loose Loose # Bowel Movements 1 # Emeses 2 Exam: Exam: Exam: General: Alert, Awake, No acute Distress Eyes/N/T: EOMI, Head/Neck: neck supple, normocephalic atraumatic CV: RRR, No murmurs, normal s1/s2 Pulm: Clear b/l, no wheezing/rhonchi/rales Abd: soft, nontender, +BS x4 Ext: no clubbing/cyanosis/edema Neuro: Alert, no focal deficits, moves all extremities, Skin: warm/dry OBJ DATA Labs CBC & Chem 7: 11/03/19 04:42 11/03/19 04:42 Labs: Abnormal Lab Results 11/03/19 11/03/19 11/02/19 04:42 04:42 22:53 WBC 3.6 L RBC 3.03 L Hgb 9.9 L Hct 28.1 L MCHC RDW 15.3 H Plt Count 116 L MPV 10.7 H [place] % (Auto) Gran # 1.45 L Lymph # (Auto) Monocytes % (Manual) Platelet Estimate Sodium 118 L* 120 L Potassium Chloride 85 L 82 L Carbon Dioxide Anion Gap BUN 36 H 36 H Creatinine 1.8 H 2.2 H Glucose Uric Acid 10.7 H Calcium 8.5 L Phosphorus Magnesium 1.4 L GGT 315 H AST 50 H ALT Total Protein 5.7 L Urine Protein Urine Occult Blood U Marijuana (THC) Screen 11/02/19 11/02/19 11/02/19 17:00 10:55 04:52 WBC RBC Hgb Hct MCHC RDW Plt Count MPV [place] % (Auto) Gran # Lymph # (Auto) Monocytes % (Manual) Platelet Estimate Sodium 118 L* 116 L* 114 L* Potassium 2.9 L* Chloride 82 L 78 L 76 L Carbon Dioxide 21 L Anion Gap 17.0 H BUN 37 H 35 H 34 H Creatinine 2.5 H 2.7 H 3.4 H Glucose 114 H Uric Acid 14.8 H Calcium 8.3 L 8.1 L Phosphorus Magnesium GGT 375 H AST 55 H ALT 43 H Total Protein Urine Protein Urine Occult Blood U Marijuana (THC) Screen 11/02/19 11/02/19 11/02/19 04:52 00:50 00:50 WBC 3.7 L RBC 3.29 L Hgb 10.9 L Hct 29.9 L MCHC 36.5 H RDW 14.7 H Plt Count 109 L MPV [place] % (Auto) 18.3 H Gran # 1.54 L Lymph # (Auto) 1.43 L Monocytes % (Manual) Platelet Estimate Sodium Potassium Chloride Carbon Dioxide Anion Gap BUN Creatinine Glucose Uric Acid Calcium Phosphorus Magnesium GGT AST ALT Total Protein Urine Protein 30 A Urine Occult Blood 0.2 A U Marijuana (THC) Screen Suspect positive A 11/01/19 11/01/19 11/01/19 23:13 23:12 21:05 WBC 4.3 L RBC 3.39 L Hgb 11.2 L Hct 31.0 L MCHC 36.1 H RDW 15.0 H Plt Count 109 L MPV [place] % (Auto) 15.5 H Gran # Lymph # (Auto) 1.35 L Monocytes % (Manual) Platelet Estimate Sodium 114 L* 112 L* Potassium 3.1 L Chloride 75 L 74 L Carbon Dioxide Anion Gap BUN 35 H 36 H Creatinine 3.5 H 3.2 H Glucose Uric Acid 15.1 H Calcium 8.5 L 8.3 L Phosphorus 4.9 H Magnesium 1.5 L GGT 419 H AST 62 H ALT 49 H Total Protein Urine Protein Urine Occult Blood U Marijuana (THC) Screen 11/01/19 11/01/19 17:34 17:34 WBC RBC 3.71 L Hgb 11.9 L Hct 33.4 L MCHC RDW 15.2 H Plt Count 133 L MPV [place] % (Auto) Gran # Lymph # (Auto) Monocytes % (Manual) 15 H Platelet Estimate Decreased A Sodium 113 L* Potassium Chloride 71 L Carbon Dioxide Anion Gap 20.0 H BUN 33 H Creatinine 3.2 H Glucose Uric Acid Calcium Phosphorus Magnesium GGT AST 73 H ALT 57 H Total Protein Urine Protein Urine Occult Blood U Marijuana (THC) Screen Meds: Medications Allopurinol (Zylopriim) 300 mg PO DAILY [facility] Last Admin: 11/02/19 10:32 Dose: 300 mg Documented by: Amlodipine Besylate (Norvasc) 10 mg PO DAILY [facility] Last Admin: 11/02/19 10:33 Dose: Not Given Documented by: Chlordiazepoxide HCl (Librium) 25 mg PO Q4HP PRN PRN Reason: Alcohol Withdrawal Last Admin: 11/01/19 22:53 Dose: 25 mg Documented by: Clonidine HCl (Catapres) 0.1 mg PO Q4HP PRN PRN Reason: ALC Folic Acid (Folic Acid) 1 mg PO DAILY [facility] Last Admin: 11/02/19 10:32 Dose: 1 mg Documented by: Heparin Sodium (Porcine) (Heparin) 5,000 unit SQ Q12 [facility] Last Admin: 11/02/19 20:45 Dose: 5,000 unit Documented by: Iron Carb/Multivit/Shipping Clerk/Admin/Folic Acid (Multivitamin W/Minerals) 1 tab PO DAILY [facility] Last Admin: 11/02/19 10:32 Dose: 1 tab Documented by: Labetalol HCl (Trandate) 0 mg IV Q2HP PRN PRN Reason: Hypertension Loperamide HCl (Imodium) 2 mg PO PRN PRN PRN Reason: Diarrhea Lorazepam (Ativan) 0 mg IV Q4HP PRN; Protocol PRN Reason: Alcohol Withdrawal Magnesium Oxide (Magnesium Oxide) 400 mg PO DAILY [facility] Last Admin: 11/02/19 10:32 Dose: 400 mg Documented by: Melatonin (Melatonin 3mg Tablet) 3 mg PO HS [facility] Last Admin: 11/02/19 20:44 Dose: 3 mg Documented by: Metoprolol Tartrate (Lopressor) 25 mg PO BID [facility] Last Admin: 11/02/19 20:44 Dose: 25 mg Documented by: Mirtazapine (Remeron) 7.5 mg PO HS [facility] Last Admin: 11/02/19 20:44 Dose: 7.5 mg Documented by: Ondansetron HCl (Zofran) 4 mg IV Q4HP PRN PRN Reason: Nausea And Vomiting Senna (Senokot) 2 tab PO DAILYP PRN PRN Reason: Constipation Sodium Chloride (Saline Flush) 10 ml IV Q8 [facility] Last Admin: 11/03/19 05:44 Dose: 10 ml Documented by: Thiamine HCl (Vitamin B1) 100 mg PO DAILY [facility] Last Admin: 11/02/19 10:32 Dose: 100 mg Documented by: A/P Assessment and plan (1) Acute renal failure: Status: Acute Qualifiers: Acute renal failure type: unspecified Qualified Code(s): N17.9 - Acute kidney failure, unspecified (2) Hyponatremia with decreased serum osmolality: Status: Acute Narrative A/P Narrative: A: *DYANA on CKDII: 2/2 n/v/d -Follows with Dr. Acosta outpatient -Improving *N/V/D: ?gastroenteritis less likely vs etoh + meds (?naltrexone) -c. diff neg, no fecal wbc *Hyponatremia/chloridemia/kalemia: beer potomania + HCTZ + and volume loss -improving *Volume depletion: improved: *hypomag: prn replace *Alcohol abuse: Follows with Dr. Hoyos outpatient *History of substance abuse: No meth since May -UDS no meth, +MJ *Thrombocytopenia: likely 2/2 etoh, stable *HTN: intermittent hypotension *Schizophrenia: *Anxiety: *insomnia P: -IVF and sodium mgmt per Nephrology -CIWA, prn benzo, vitamins -imodium -Dr. Duong following -hold home norvasc/decrease BB for low BP, hold ARB/HCTZ for DYANA and hyponatremia, will not cont hctz on d/c -ppx: heparin full code Time Spent With Patient Time: Total time spent is greater than 50% in coordination of care (as doc umented) at patient's floor/unit and/or counseling patient: QUALITY VTE Deep Vein Thrombosis/Pulmonary Embolism Present on Admission: No
[2019-11-03] MEDS: MULTIVIT,THER IRON,CA,FA & MIN 1 TABLET PO SCH (08:54)
[2019-11-03] MEDS: MAGNESIUM OXIDE 400 MG TABLET PO SCH (08:55)
[2019-11-03] MEDS: THIAMINE 100 MG TABLET PO SCH (08:55)
[2019-11-03] MEDS: HEPARIN 5,000 UNIT/ML VIAL SQ SCH ×2 (08:55→21:16)
[2019-11-03] MEDS: FOLIC ACID 1 MG TABLET PO SCH (08:55)
[2019-11-03] MEDS: ALLOPURINOL 300 MG TABLET PO SCH (08:56)
[2019-11-03] MEDS ORDERED: MAGNESIUM SULFATE 2 GM/50 ML BAG IV ONE (09:00)
[2019-11-03] MEDS ORDERED: METOPROLOL TARTRATE 25 MG TABLET PO SCH (09:00)
[2019-11-03] MEDS ORDERED: SENNOSIDES 1 TABLET PO PRN (11:28)
[2019-11-03] MEDS ORDERED: LORazepam 2 MG/ML VIAL IV PRN (11:28)
[2019-11-03] MEDS ORDERED: LOPERAMIDE 2 MG CAPSULE PO PRN (11:28)
[2019-11-03] MEDS ORDERED: ONDANSETRON 4 MG/2 ML VIAL IV PRN (11:28)
[2019-11-03] MEDS ORDERED: LABETALOL 5 MG/ML ML IV PRN (11:28)
[2019-11-03] MEDS ORDERED: cloNIDine HCL 0.1 MG TABLET PO PRN (11:28)
[2019-11-03 13:58] LABS: Blood Urea Nitrogen 32 mg/dl (6-20); Carbon Dioxide 22 mmol/L (22-30); Chloride 83 mmol/L (96-108); Glomerular Filtration Rate 46; Glucose 100 mg/dL (70-105)
[2019-11-03] MEDS: chlordiazePOXIDE 25 MG CAPSULE PO PRN (17:25)
[2019-11-03 18:11] LABS: Blood Urea Nitrogen 30 mg/dl (6-20); Calcium 9.2 mg/dl (8.6-10.4); Carbon Dioxide 24 mmol/L (22-30); Glomerular Filtration Rate 54; Glucose 107 mg/dL (70-105)
[2019-11-03 18:13] LABS: Chloride 85 mmol/L (96-108)
[2019-11-03] MEDS: METOPROLOL TARTRATE 25 MG TABLET PO SCH (21:14)
[2019-11-03] MEDS: MIRTAZAPINE 15 MG TABLET PO SCH (21:14)
[2019-11-03] MEDS: MELATONIN 3 MG TABLET PO SCH (21:14)
[2019-11-04 00:35] LABS: Blood Urea Nitrogen 31 mg/dl (6-20); Calcium 9.4 mg/dl (8.6-10.4); Carbon Dioxide 26 mmol/L (22-30); Glomerular Filtration Rate 54; Glucose 93 mg/dL (70-105)
[2019-11-04 00:36] LABS: Chloride 86 mmol/L (96-108)
[2019-11-04] MEDS ORDERED: DESMOPRESSIN ACETATE 1 MCG in 0.9 % SODIUM CHLORIDE 50 ML IV ONE (01:03)
[2019-11-04] MEDS: 0.9 % SODIUM CHLORIDE 10 ML SYRINGE IV SCH ×3 (06:00→21:44)
[2019-11-04 07:05] LABS: ALT/SGPT 53 U/l (0-40); AST/SGOT 68 U/l (0-37); Albumin 3.6 gm/dL (3.2-5.2); Albumin/Globulin Ratio 1.3 (1.0-2.3); Alkaline Phosphatase 60 U/L (39-117); Bilirubin,Direct < 0.2 mg/dL (0.0-0.3); Bilirubin,Total 0.2 mg/dL (0.0-1.0); Blood Urea Nitrogen 30 mg/dl (6-20); Calcium 9.1 mg/dl (8.6-10.4); Carbon Dioxide 26 mmol/L (22-30); Globulin 2.7 gm/dL (2.2-3.7); Glomerular Filtration Rate 54; Glucose 79 mg/dL (70-105); Lactate Dehydrogenase 201 U/L (94-250); Phosphorous 2.5 mg/dL (2.7-4.5); Triglycerides 130 mg/dl (<150)
[2019-11-04] MEDS ORDERED: MAGNESIUM SULFATE 2 GM/50 ML BAG IV ONE (07:08)
[2019-11-04 07:10] LABS: Chloride 89 mmol/L (96-108); Uric Acid 8.5 mg/dL (2.5-8.0)
--- NOTE | 2019-11-04 07:10 | Internal Med Progress Note ---
SUBJECTIVE Subjective Patient information: Note initiated : 11/04/19 at 7:05 am Service Date, if different from initiated Date: [] Interval history: History of present illness: Mr. Aburto is a 48 year old M Presents the ED with generalized weakness nausea vomiting diarrhea crampy muscles and achiness all for several weeks. He sees nephrology for chronic kidney disease and Dr. Eller asked for substance abuse alcohol. Work-up in the ED was notable for acute kidney injury with a creatinine 3.2 with a low chloride. His sodium was significantly low 113. Patient denies any seizure history. No chest pain and no new shortness of breath. Reports chronic shortness of breath for months. Case was assessed with Dr. Duong in the ED. Patient received 1 L of normal saline with further fluid management per Dr. Duong. Patient reports she drinks alcohol daily. Quit smoking 4 months ago. 11/01 Poor sleep last night and has had poor sleep for the past week. Overall feeling a little bit better. Has urine output. Had a little bit of nausea with breakfast. No vomiting. Had C. difficile checked which was negative. Renal function no improvement yet. 11/02 Continues to feel gradually better. No new complaints. No nausea vomiting or diarrhea. Sodium coming up appropriately. Blood pressure little low and so decreased his blood pressure medications. 11/03 Patient slept well and continues to feel much better. No new pains or complaints. Sodium coming up appropriately last sodium last night. 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 Review of Systems: denies headache/fever/chills/vomiting/chest or abdominal pain/cough/dyspnea. Otherwise see above. Constitutional Vitals: Vital Signs Temp Pulse Resp BP Pulse Ox 97.4 F 62 16 132/79 95 11/04/19 04:00 11/04/19 04:00 11/04/19 04:00 11/04/19 04:00 11/04/19 04:00 Period Temp Pulse Resp BP Sys/Tarango Pulse Ox Last 24 Hr 97.4 F-98.1 F 51-88 05-05 102-137/47-87 94-100 Intake and Output 11/03/19 11/04/19 11/04/19 21:59 05:59 13:59 Intake Total 1000 Output Total 650 Balance -650 1000 Weight 92.618 kg Intake & Output: Intake & Output 11/03/19 11/04/19 11/04/19 21:59 05:59 13:59 Intake Total 1000 Output Total 650 Balance -650 1000 Weight 92.618 kg Intake: Oral 1000 Output: Void Amount 650 Other: Meal Dinner Percent of Meal Consumed 100% Urine Appearance Clear Urine Color Light Luz Urine Odor Strong Stool Size Moderate Stool Color Brown Stool Consistency Formed # Voids 1 # Bowel Movements 1 Exam: Exam: Exam: Exam: General: Alert, Awake, No acute Distress Eyes/N/T: EOMI, Head/Neck: neck supple, normocephalic atraumatic CV: RRR, No murmurs, normal s1/s2 Pulm: Clear b/l, no wheezing/rhonchi/rales Abd: soft, nontender, +BS x4 Ext: no clubbing/cyanosis/edema Neuro: Alert, no focal deficits, moves all extremities, Skin: warm/dry OBJ DATA Labs CBC & Chem 7: 11/03/19 04:42 11/04/19 04:11 Labs: Abnormal Lab Results 11/03/19 11/03/19 11/03/19 23:40 17:00 11:15 WBC RBC Hgb Hct MCHC RDW Plt Count MPV [place] % (Auto) Gran # Lymph # (Auto) Monocytes % (Manual) Platelet Estimate Sodium 124 L 121 L 119 L* Potassium Chloride 86 L 85 L 83 L Carbon Dioxide Anion Gap BUN 31 H 30 H 32 H Creatinine 1.5 H 1.5 H 1.7 H Glucose 107 H Uric Acid Calcium Phosphorus Magnesium GGT AST ALT Total Protein Urine Protein Urine Occult Blood U Marijuana (THC) Screen 11/03/19 11/03/19 11/02/19 04:42 04:42 22:53 WBC 3.6 L RBC 3.03 L Hgb 9.9 L Hct 28.1 L MCHC RDW 15.3 H Plt Count 116 L MPV 10.7 H [place] % (Auto) Gran # 1.45 L Lymph # (Auto) Monocytes % (Manual) Platelet Estimate Sodium 118 L* 120 L Potassium Chloride 85 L 82 L Carbon Dioxide Anion Gap BUN 36 H 36 H Creatinine 1.8 H 2.2 H Glucose Uric Acid 10.7 H Calcium 8.5 L Phosphorus Magnesium 1.4 L GGT 315 H AST 50 H ALT Total Protein 5.7 L Urine Protein Urine Occult Blood U Marijuana (THC) Screen 11/02/19 11/02/19 11/02/19 17:00 10:55 04:52 WBC RBC Hgb Hct MCHC RDW Plt Count MPV [place] % (Auto) Gran # Lymph # (Auto) Monocytes % (Manual) Platelet Estimate Sodium 118 L* 116 L* 114 L* Potassium 2.9 L* Chloride 82 L 78 L 76 L Carbon Dioxide 21 L Anion Gap 17.0 H BUN 37 H 35 H 34 H Creatinine 2.5 H 2.7 H 3.4 H Glucose 114 H Uric Acid 14.8 H Calcium 8.3 L 8.1 L Phosphorus Magnesium GGT 375 H AST 55 H ALT 43 H Total Protein Urine Protein Urine Occult Blood U Marijuana (THC) Screen 11/02/19 11/02/19 11/02/19 04:52 00:50 00:50 WBC 3.7 L RBC 3.29 L Hgb 10.9 L Hct 29.9 L MCHC 36.5 H RDW 14.7 H Plt Count 109 L MPV [place] % (Auto) 18.3 H Gran # 1.54 L Lymph # (Auto) 1.43 L Monocytes % (Manual) Platelet Estimate Sodium Potassium Chloride Carbon Dioxide Anion Gap BUN Creatinine Glucose Uric Acid Calcium Phosphorus Magnesium GGT AST ALT Total Protein Urine Protein 30 A Urine Occult Blood 0.2 A U Marijuana (THC) Screen Suspect positive A 11/01/19 11/01/19 11/01/19 23:13 23:12 21:05 WBC 4.3 L RBC 3.39 L Hgb 11.2 L Hct 31.0 L MCHC 36.1 H RDW 15.0 H Plt Count 109 L MPV [place] % (Auto) 15.5 H Gran # Lymph # (Auto) 1.35 L Monocytes % (Manual) Platelet Estimate Sodium 114 L* 112 L* Potassium 3.1 L Chloride 75 L 74 L Carbon Dioxide Anion Gap BUN 35 H 36 H Creatinine 3.5 H 3.2 H Glucose Uric Acid 15.1 H Calcium 8.5 L 8.3 L Phosphorus 4.9 H Magnesium 1.5 L GGT 419 H AST 62 H ALT 49 H Total Protein Urine Protein Urine Occult Blood U Marijuana (THC) Screen 11/01/19 11/01/19 17:34 17:34 WBC RBC 3.71 L Hgb 11.9 L Hct 33.4 L MCHC RDW 15.2 H Plt Count 133 L MPV [place] % (Auto) Gran # Lymph # (Auto) Monocytes % (Manual) 15 H Platelet Estimate Decreased A Sodium 113 L* Potassium Chloride 71 L Carbon Dioxide Anion Gap 20.0 H BUN 33 H Creatinine 3.2 H Glucose Uric Acid Calcium Phosphorus Magnesium GGT AST 73 H ALT 57 H Total Protein Urine Protein Urine Occult Blood U Marijuana (THC) Screen Meds: Medications Allopurinol (Zylopriim) 300 mg PO DAILY [facility] Chlordiazepoxide HCl (Librium) 25 mg PO Q4HP PRN PRN Reason: Alcohol Withdrawal Last Admin: 11/03/19 17:25 Dose: 25 mg Documented by: Clonidine HCl (Catapres) 0.1 mg PO Q4HP PRN PRN Reason: ALC Folic Acid (Folic Acid) 1 mg PO DAILY [facility] Heparin Sodium (Porcine) (Heparin) 5,000 unit SQ Q12 [facility] Last Admin: 11/03/19 21:16 Dose: 5,000 unit Documented by: Iron Carb/Multivit/[place]/Folic Acid (Multivitamin W/Minerals) 1 tab PO DAILY [facility] Labetalol HCl (Trandate) 0 mg IV Q2HP PRN PRN Reason: Hypertension Loperamide HCl (Imodium) 2 mg PO PRN PRN PRN Reason: Diarrhea Lorazepam (Ativan) 0 mg IV Q4HP PRN; Protocol PRN Reason: Alcohol Withdrawal Magnesium Oxide (Magnesium Oxide) 400 mg PO DAILY [facility] Melatonin (Melatonin 3mg Tablet) 3 mg PO HS [facility] Last Admin: 11/03/19 21:14 Dose: 3 mg Documented by: Metoprolol Tartrate (Lopressor) 12.5 mg PO BID [facility] Last Admin: 11/03/19 21:14 Dose: 12.5 mg Documented by: Mirtazapine (Remeron) 7.5 mg PO HS [facility] Last Admin: 11/03/19 21:14 Dose: 7.5 mg Documented by: Ondansetron HCl (Zofran) 4 mg IV Q4HP PRN PRN Reason: Nausea And Vomiting Senna (Senokot) 2 tab PO DAILYP PRN PRN Reason: Constipation Sodium Chloride (Saline Flush) 10 ml IV Q8 [facility] Last Admin: 11/03/19 21:16 Dose: 10 ml Documented by: Thiamine HCl (Vitamin B1) 100 mg PO DAILY [facility] A/P Assessment and plan (1) Acute renal failure: Status: Acute Qualifiers: Acute renal failure type: unspecified Qualified Code(s): N17.9 - Acute kidney failure, unspecified (2) Hyponatremia with decreased serum osmolality: Status: Acute Narrative A/P Narrative: A: *DYANA on CKDII: 2/2 n/v/d -Follows with Dr. Acosta outpatient -Improving *N/V/D: ?gastroenteritis less likely vs etoh + meds (?naltrexone) -c. diff neg, no fecal wbc *Hyponatremia/chloridemia/kalemia: beer potomania + HCTZ + and volume loss -improving *Volume depletion: improved: *hypomag: prn replace *Alcohol abuse: Follows with Dr. Hoyos outpatient *History of substance abuse: No meth since May -UDS no meth, +MJ *Thrombocytopenia: likely 2/2 etoh, stable *HTN: intermittent hypotension *Schizophrenia: *Anxiety: *insomnia P: -IVF and sodium mgmt per Nephrology -CIWA, prn benzo, vitamins -imodium -Dr. Duong following -hold home norvasc(may restart at lower dose)/decrease BB for low BP, hold ARB/HCTZ for DYANA and hyponatremia, will not cont hctz on d/c -ppx: heparin full code Time Spent With Patient Time: Total time spent is greater than 50% in coordination of care (as documented) at patient's floor/unit and/or counseling patient: QUALITY VTE Deep Vein Thrombosis/Pulmonary Embolism Present on Admission: No
[2019-11-04] MEDS ORDERED: MAGNESIUM SULFATE 2 GM/50 ML BAG IV PRN (07:40)
--- NOTE | 2019-11-04 08:39 | Nephrology Progress Note ---
SUBJECTIVE Subjective Patient information: Note initiated : 11/04/19 at 8:36 am Service Date, if different from initiated Date: [] Patient: Zak Aburto 48 y/o M admitted on 11/01/19 for weakness. Chief Complaint: [denies: headache, shortness of breath, edema, nausea, vomiting. Received 1 mcg DDAVP last night Is wanting to be discharged today at [facility] he had 2 deaths in the family over the last week] Constitutional Vitals: Vital Signs Temp Pulse Resp BP Pulse Ox 36.4 C 62 20 126/87 96 11/04/19 08:00 11/04/19 04:00 11/04/19 08:00 11/04/19 08:00 11/04/19 08:00 Period Temp Pulse Resp BP Sys/Tarango Pulse Ox Last 24 Hr 36.3 C-36.7 C 51-88 05-05 102-137/47-87 94-100 Intake and Output 11/03/19 11/04/19 11/04/19 21:59 05:59 13:59 Intake Total 1050.25 Output Total 650 Balance -650 1050.25 Weight 92.618 kg HEENT head is normocephalic, atraumatic. Eyes nonicteric sclera Lungs on room air, nonlabored respirations, clear to auscultation bilaterally Cardiovascular regular rate and rhythm, no rubs. No lower extremity edema Neuro alert, clear speech, moves all extremities Intake & Output: Intake & Output 11/03/19 11/04/19 11/04/19 21:59 05:59 13:59 Intake Total 1050.25 Output Total 650 Balance -650 1050.25 Weight 92.618 kg Intake: IV 50.25 Ddavp 1 Mcg In Sodium Chloride 50.25 0.9% 50 ml @ 200 mls/hr IV ONCE ONE Rx#:[id number] Oral 1000 Output: Void Amount 650 Other: Meal Dinner Percent of Meal Consumed 100% Urine Appearance Clear Urine Color Light Luz Urine Odor Strong Stool Size Moderate Stool Color Brown Stool Consistency Formed # Voids 1 # Bowel Movements 1 A/P Assessment and plan (1) Acute renal failure: Assessment and plan: Work up: MRI Abdomen on 10/01/19: Both kidneys are normal and symmetric in size, position, configuration and signal intensity within the right is 10.8 x 1.7 cm and the left is 10 x 5 cm. There is no mass identified in the inferior pole of the right kidney. Ultrasound findings should be considered artifact. There is a 8 mm simple cyst in the mid left kidney. Urinalysis on 11/02/19: Yellow, hazy, pH 5.0, SG 1.004, protein 30, blood 0.2, leukocyte esterase negative. Renal function continues to improve. He is nonoliguric. Status: Acute Qualifiers: Acute renal failure type: unspecified Qualified Code(s): N17.9 - Acute kidney failure, unspecified (2) Hyponatremia with decreased serum osmolality: Assessment and plan: Serum sodium increased Status: Acute Narrative A/P Narrative: *Check renal function panel now and repeat 6 hours later *Goal serum sodium by 1700 today approximately 127 *The patient wants to be discharged today and is willing to leave AGAINST MEDICAL ADVICE. The risks associated with overcorrection of hyponatremia including late onset paralysis, potentially life-threatening risks explained to the patient in layman terms. He voiced understanding and said he might have to take this risk. Time Spent With Patient Time: Total time spent is greater than 50% in coordination of care (as documented) at patient's floor/unit and/or counseling patient: Total time spent with greater than 50% in coordination of care (as documented) at patient's floor/unit and/or counseling patient:: 15 - 24 minutes
[2019-11-04] MEDS ORDERED: ALLOPURINOL 300 MG TABLET PO SCH (09:00)
[2019-11-04] MEDS: FOLIC ACID 1 MG TABLET PO SCH (10:01)
[2019-11-04] MEDS: THIAMINE 100 MG TABLET PO SCH (10:02)
[2019-11-04] MEDS: MULTIVIT,THER IRON,CA,FA & MIN 1 TABLET PO SCH (10:03)
[2019-11-04] MEDS: MAGNESIUM OXIDE 400 MG TABLET PO SCH (10:03)
[2019-11-04] MEDS: METOPROLOL TARTRATE 25 MG TABLET PO SCH ×2 (10:04→21:42)
[2019-11-04] MEDS: HEPARIN 5,000 UNIT/ML VIAL SQ SCH ×2 (10:05→21:43)
[2019-11-04] MEDS: chlordiazePOXIDE 25 MG CAPSULE PO PRN ×3 (10:17→21:43)
[2019-11-04 11:00] LABS: Albumin 4.3 gm/dL (3.2-5.2); Blood Urea Nitrogen 27 mg/dl (6-20); Calcium 9.7 mg/dl (8.6-10.4); Carbon Dioxide 26 mmol/L (22-30); Glomerular Filtration Rate 54; Glucose 87 mg/dL (70-105)
[2019-11-04 11:06] LABS: Chloride 86 mmol/L (96-108); Phosphorous 2.2 mg/dL (2.7-4.5)
--- NOTE | 2019-11-04 13:44 | Discharge Summary ---
Discharge Provider Provider Patient information: Note initiated : 11/04/19 at 1:43 pm Service Date, if different from initiated Date: [] Patient: Zak Aburto a 48 y/o M admitted on 11/01/19 for weakness. Chief Complaint: [] Date of admission: 11/01/19 22:05 Discharge date: 11/05/19 Primary care physician: DEJON Harris Consults: 11/01/19 Consult to Physician [CONS] Stat Comment: Consulting Provider: Javan Koehler Reason For Exam: Physician to Consult 11/01/19 23:08 Consult to Physician [CONS] Routine Comment: Consulting Provider: Дмитрий Duong Reason For Exam: Physician to Consult COURSE Hospital Course Hospital Course: History of present illness: Mr. Aburto is a 48 year old M Presents the ED with generalized weakness nausea vomiting diarrhea crampy muscles and achiness all for several weeks. He sees nephrology for chronic kidney disease and Dr. Eller asked for substance abuse alcohol. Work-up in the ED was notable for acute kidney injury with a creatinine 3.2 with a low chloride. His sodium was significantly low 113. Patient denies any seizure history. No chest pain and no new shortness of breath. Reports chronic shortness of breath for months. Case was assessed with Dr. Duong in the ED. Patient received 1 L of normal saline with further fluid management per Dr. Duong. Patient reports she drinks alcohol daily. Quit smoking 4 months ago. 11/01 Poor sleep last night and has had poor sleep for the past week. Overall feeling a little bit better. Has urine output. Had a little bit of nausea with breakfast. No vomiting. Had C. difficile checked which was negative. Renal fu nction no improvement yet. 11/02 Continues to feel gradually better. No new complaints. No nausea vomiting or diarrhea. Sodium coming up appropriately. Blood pressure little low and so decreased his blood pressure medications. 11/03 Patient slept well and continues to feel much better. No new pains or complaints. Sodium coming up appropriately last sodium last night. 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 11/04 Doing well. Sodium appropriate. Patient feeling great and stable for discharge. A: *DYANA on CKDII: 2/2 n/v/d -Follows with Dr. Acosta outpatient -Improving *N/V/D: ?gastroenteritis less likely vs etoh + meds (?naltrexone) -c. diff neg, no fecal wbc *Hyponatremia/chloridemia/kalemia: beer potomania + HCTZ + and volume loss -improving *Volume depletion: improved: *hypomag: prn replace *Alcohol abuse: Follows with Dr. Hoyos outpatient *History of substance abuse: No meth since May -UDS no meth, +MJ *Thrombocytopenia: likely 2/2 etoh, stable *HTN: intermittent hypotension *Schizophrenia: *Anxiety: *insomnia Discharge diagnosis: Acute kidney injury nausea vomiting diarrhea electrolyte imbalance including hyponatremia Secondary discharge diagnosis: Volume depletion alcohol abuse chronic thrombocytopenia hypertension schizophrenia anxiety insomnia Time Spent with Patient Time attestation: Total time spent providing and/or coordinating discharge services: Time spent: Greater than 30 minutes EXAM Constitutional Vitals: Temp Pulse Resp BP Pulse Ox 98.6 F 62 20 124/78 100 11/04/19 11:57 11/04/19 04:00 11/04/19 11:57 11/04/19 11:57 11/04/19 11:57 Discharge Data Data Completed and Pending Labs on day of discharge: Labs from last 24 hours 11/04/19 11/04/19 11/04/19 13:04 09:30 09:25 Sodium Pending 126 L Cancelled Potassium Pending 3.9 Cancelled Chloride Pending 86 L Cancelled Carbon Dioxide Pending 26 Cancelled Anion Gap Pending 14.0 Cancelled BUN Pending 27 H Cancelled Creatinine Pending 1.5 H Cancelled GFR Calculation Pending 54 Cancelled Glucose Pending 87 Cancelled Uric Acid Calcium Pending 9.7 Cancelled Phosphorus 2.2 L Cancelled Magnesium Total Bilirubin Direct Bilirubin GGT AST ALT Alkaline Phosphatase Lactate Dehydrogenase Total Protein Albumin 4.3 Cancelled Globulin Albumin/Globulin Ratio Triglycerides 11/04/19 11/03/19 11/03/19 04:11 23:40 17:00 Sodium 127 L 124 L 121 L Potassium 4.7 4.6 3.9 Chloride 89 L 86 L 85 L Carbon Dioxide 26 26 24 Anion Gap 12.0 12.0 12.0 BUN 30 H 31 H 30 H Creatinine 1.5 H 1.5 H 1.5 H GFR Calculation 54 54 54 Glucose 79 93 107 H Uric Acid 8.5 H Calcium 9.1 9.4 9.2 Phosphorus 2.5 L Magnesium 1.5 L Total Bilirubin 0.2 Direct Bilirubin < 0.2 GGT 334 H AST 68 H ALT 53 H Alkaline Phosphatase 60 Lactate Dehydrogenase 201 Total Protein 6.3 Albumin 3.6 Globulin 2.7 Albumin/Globulin Ratio 1.3 Triglycerides 130 11/03/19 11:15 Sodium 119 L* Potassium 4.0 Chloride 83 L Carbon Dioxide 22 Anion Gap 14.0 BUN 32 H Creatinine 1.7 H GFR Calculation 46 Glucose 100 Uric Acid Calcium 9.0 Phosphorus Magnesium Total Bilirubin Direct Bilirubin GGT AST ALT Alkaline Phosphatase Lactate Dehydrogenase Total Protein Albumin Globulin Albumin/Globulin Ratio Triglycerides Discharge Plan Patient/Caregiver Discharge Instructions Activity: increase activity as tolerated Diet: Regular Diet Instructions: Acute Kidney Injury (GEN), Hyponatremia (GEN) Activity Restrictions/Additional Instructions: *Blood pressure daily and bring log to neurologist and PCP This discharge packet is provided to you to help keep you informed about your care. We want to ensure you get everything you need when you go home. You will also be receiving a call from us in a few days to follow up with you and see how you are doing since your discharge. This gives us a chance to listen to any concerns you maybe experiencing since you were discharged or any additional needs you may have, as well as providing us feedback on your care experience. We strive to always provide excellent care and thank you for your feedback and for choosing [facility]. Prescriptions: New metoprolol tartrate 25 mg Tablet 12.5 mg PO BID Qty: 10 RF: 0 Continued mirtazapine [Remeron] 15 mg tablet 7.5 mg PO QHS Qty: 30 RF: 0 cholecalciferol (vitamin D3) 50 mcg (2,000 unit) capsule 50 mcg PO QDAY Qty: 90 RF: 0 naltrexone 50 mg tablet 50 mg PO QDAY RF: 0 albuterol sulfate [ProAir HFA] 90 mcg/actuation HFA aerosol inhaler 2 puff inhalation .q4-6h PRN (Reason: cough, shortness of breath, wheezing) Qty: 8.5 RF: 0 allopurinol 300 MG tablet 300 mg PO DAILY RF: 0 Changed amlodipine 10 MG tablet 2.5 mg PO DAILY Qty: 10 RF: 0 Discontinued hydrochlorothiazide 25 MG tablet 25 mg PO DAILY RF: 0 losartan 100 MG tablet 100 mg PO DAILY RF: 0 metoprolol tartrate 25 MG tablet 25 mg PO BID RF: 0 Follow Up Plan Follow up with: Vishnu Rankin ARNP [Primary Care Provider] - 11/13/19 10:00 am (This appointment will be with Jason Frazier) Tamiko Acosta MD [Physician] - 11/14/19 9:15 am Trisha Hoyos DO [Physician] - (Continue with your currently scheduled appointment.) Patient Disposition: Home, Self-Care Prognosis: Fair Rehab Potential: Fair Overall status at discharge: patient is progressing back to baseline Discharge Orders: Discharge Order (Routine); Ordered 11/05/19 Ordered By: Javan Turkestefania [facility] VTE Deep Vein Thrombosis/Pulmonary Embolism Present on Admission: No
[2019-11-04 19:06] LABS: Blood Urea Nitrogen 29 mg/dl (6-20); Calcium 9.8 mg/dl (8.6-10.4); Carbon Dioxide 23 mmol/L (22-30); Glomerular Filtration Rate 54; Glucose 114 mg/dL (70-105)
[2019-11-04 19:11] LABS: Chloride 90 mmol/L (96-108)
[2019-11-04] MEDS: MELATONIN 3 MG TABLET PO SCH (21:43)
[2019-11-04] MEDS: MIRTAZAPINE 15 MG TABLET PO SCH (21:43)
[2019-11-05] MEDS: 0.9 % SODIUM CHLORIDE 10 ML SYRINGE IV SCH (04:44)
[2019-11-05 07:50] LABS: ALT/SGPT 58 U/l (0-40); AST/SGOT 69 U/l (0-37); Albumin 3.5 gm/dL (3.2-5.2); Albumin/Globulin Ratio 1.4 (1.0-2.3); Alkaline Phosphatase 51 U/L (39-117); Bilirubin,Direct < 0.2 mg/dL (0.0-0.3); Bilirubin,Total 0.2 mg/dL (0.0-1.0); Blood Urea Nitrogen 28 mg/dl (6-20); Calcium 8.8 mg/dl (8.6-10.4); Carbon Dioxide 23 mmol/L (22-30); Chloride 98 mmol/L (96-108); Globulin 2.5 gm/dL (2.2-3.7); Glomerular Filtration Rate 64; Glucose 83 mg/dL (70-105); Lactate Dehydrogenase 190 U/L (94-250); Phosphorous 3.1 mg/dL (2.7-4.5); Triglycerides 89 mg/dl (<150); Uric Acid 6.1 mg/dL (2.5-8.0)
[2019-11-05] MEDS: THIAMINE 100 MG TABLET PO SCH (09:28)
[2019-11-05] MEDS: METOPROLOL TARTRATE 25 MG TABLET PO SCH (09:28)
[2019-11-05] MEDS: FOLIC ACID 1 MG TABLET PO SCH (09:28)
[2019-11-05] MEDS: MAGNESIUM OXIDE 400 MG TABLET PO SCH (09:29)
[2019-11-05] MEDS: MULTIVIT,THER IRON,CA,FA & MIN 1 TABLET PO SCH (09:29)
[2019-11-09 15:22] LABS: Cannabinoid Confirmation POSITIVE (N)
== END 2019-11-05 09:40 | disposition home or self-care (01) | DRG 683 ==
LOC: ED 16:46 → ICU 20:05
PROVIDERS: ADMIT Internal Medicine; ATTEND Internal Medicine